=== PATIENT | male | born 1945 | race Caucasian/White ===

== ENCOUNTER 2018-02-15 14:19 | Emergency (ER) | payer MEDICARE ==
[2018-02-15 14:50] LABS: Clarity Cloudy (Clear)
[2018-02-15 15:00] LABS: Bilirubin Negative (Negative); Blood, Urine Large (Negative); Glucose, Urine (Dipstick) Negative (Negative); Leukocyte Negative (Negative); Nitrite Negative (Negative); Protein, Urine (Dipstick) 100 mg/dL (Neg-Trace); Urobilinogen 0.2 mg/dL (0.2-1.0)
[2018-02-15 15:01] LABS: RBC/HPF GREATER THAN 50-TNTC HPF (0-3)
[2018-02-15 15:02] LABS: Bacteria/HPF Rare-Few HPF (None Seen); Crystals/HPF None Seen HPF (Negative); Hyaline Casts/LPF NONE SEEN LPF (0-3 Hyaline); Other Casts/LPF None Seen LPF (0-3 Hyaline); Oval Fat Bodies/HPF None Seen HPF (None Seen); Renal Epithelial None Seen HPF (0-3); Sperm/HPF None Seen HPF (None Seen); Squamous Epithelial 0-3 HPF (0-3); Transitional Epithelial NONE SEEN HPF (0-3); Trichomonas/HPF None Seen HPF (None Seen); WBC/HPF None Seen HPF (0-3); Yeast-All Forms None Seen HPF (None Seen)
[2018-02-15 15:37] LABS: #Basophils 0.1 thou/uL (0.0-0.2); #Eosinphils 0.3 thou/uL (0.0-0.7); #Lymphocytes 1.7 thou/uL (1.20-3.40); #Monocytes 0.7 thou/uL (0.11-0.59); %Basophils 1.3 % (0.0-1.0); %Eosinophils 3.5 % (0.0-10.0); %Lymphocytes 21.6 % (21.0-51.0); %Monocytes 8.5 % (0.0-10.0); %Neutrophils 65.2 % (42.0-75.0); Hemoglobin 15.4 g/dL (14.0-18.0); Mean Corpuscular HGB CONC 34.4 g/dL (32.0-36.0); Mean Corpuscular Hemoglobin 29.3 pg (27.0-31.0); Mean Corpuscular Volume 85.2 fL (78.0-98.0); Mean Platelet Volume 7.5 fL (7.4-10.4); Platelet Count 169 thou/uL (130-400); RBC Distribution Width 11.9 % (11.5-14.5); Red Blood Cell (RBC) Count 5.24 mill/uL (4.70-6.10); White Blood Cell (WBC) Count 7.6 thou/uL (4.8-10.8)
[2018-02-15 15:43] LABS: INR-International Normal Ratio 1.1; PTT 33.1 SEC (22.9-36.1)
[2018-02-15 15:51] LABS: ALT (SGPT) 27 U/L (8-55); AST (SGOT) 22 U/L (5-34); Alkaline Phosphatase 102 U/L (40-150); Anion Gap 14 mmol/L (10-20); BUN (Urea Nitrogen) 20 mg/dL (8.4-25.7); Bilirubin, Total 0.4 mg/dL (0.2-1.2); Calc. Creatinine Clearance 0 mL/min (70-130); Carbon Dioxide 26 mmol/L (23-31); Chloride 107 mmol/L (98-107); Estimated GFR-MDRD 49; Globulin 2.9 g/dL (2.4-3.5); Glucose 103 mg/dL (83-110); Potassium 3.8 mmol/L (3.5-5.1); Protein, Total 6.9 g/dL (5.8-8.1); Sodium 143 mmol/L (136-145)
--- NOTE | 2018-02-15 19:13 | CT ---
CT ABDOMEN AND PELVIS WITH CONTRAST: 02/15/2018 TECHNIQUE: A spiral CT of the abdomen and pelvis was performed for evaluation of hematuria and dysuria. Axial s lices were acquired and then coronal and sagittal reconstructions were done. FINDINGS: ABDOMEN: The lung bases are clear, but there is an 8 mm, noncalcified, smooth-walled nodule in the l eft lower lobe. No effusions are present. The liver, spleen, pancreas, gallbladder, and adrenal gla nds are unremarkable, showing no acute findings or space-occupying disease. The aorta dilates very s lightly, right above the bifurcation, but the maximal diameter at this point is only 2.9 cm. Regarding the kidneys, there is a 1.5 cm hypolucency in the upper to mid portion of the left kidney. It is most likely a small cyst, as there are other tiny cysts throughout each kidney. [id number] s, in the context of hematuria, the patient should have an elective ultrasound done to be sure it is purely cystic. An incidental finding at this level was a retroaortic left renal vein. The bowel shows no distention or wall thickening. There are no inflammatory changes around the bowel . No free air or free fluid is seen. PELVIS: The urinary bladder is thick-walled, concentrically. It is not very distended, which could falsely thicken it somewhat. [id number], it seems thicker than expected, so cystitis or chronic outlet obstruction would be considerations. The prostate is somewhat large, measuring 4.6 cm in diam eter. No free fluid or inflammatory change is seen in the pelvis. Degenerative changes are present in the patient's lumbar spine. There are posterior osteophytes that are very significant at some lev els. At the L3-L4 level, there is a degenerated disk with central canal stenosis, narrowing down to the 7 to 8 mm range. IMPRESSION: 1. Several renal lucencies, the largest being 1.5 cm in the left kidney, most likely cysts, but in t he context of hematuria, an elective ultrasound is required to be sure it is cystic and not solid. 2. Thick-walled urinary bladder, even though collapsed. Cystitis or chronic outlet obstruction are possibilities. I would strongly recommend urological referral in this patient, for followup. 3. An 8 mm, noncalcified, smooth nodule in the left lower lobe. While statistically more likely musa ign than not, one would recommend a follow-up CT in 6 to 12 months, depending on whether or not there is a history of suspicion of neoplasm elsewhere. 4. Minor dilation of the distal abdominal aorta (2.9 cm), to be followed in the future. 5. Significant degenerative changes of the lumbar spine, including severe spinal stenosis at L3-L4. Findings discussed with Dr. Tanner at 1627 hours on 02/15/2018. CODE CR POS: HOME
== END 2018-02-15 17:12 | disposition home or self-care (01) ==
LOC: BURERS 14:19
DX: R31.29 Other microscopic hematuria (principal); R91.1 Solitary pulmonary nodule; N28.1 Cyst of kidney, acquired; K21.9 Gastro-esophageal reflux disease without esophagitis; I10 Essential (primary) hypertension; J44.9 Chronic obstructive pulmonary disease, unspecified; Z79.899 Other long term (current) drug therapy
CPT/HCPCS: 74177; 80053; 81003; 81015; 85025; 85610; 85730; 96360

== ENCOUNTER 2018-03-24 09:50 | Outpatient (CLI) | payer MEDICARE ==
--- NOTE | 2018-03-24 19:39 | ULT ---
BILATERAL RENAL ULTRASOUND: 03/24/18 Ultrasonography of the kidneys was performed for evaluation of a possible left renal cyst seen on a 04/18/17 CT scan. At that time, the patient was presenting with hematuria. The right kidney was unremarkable in appearance and measured 10.8 x 5.5 x 5.8 cm. Cortex was ample an d of normal thickness. No hydronephrosis was seen. The left kidney measured 11.0 x 5.7 x 5.3 cm. Unfortunately, neither a cyst nor an obvious mass was v isible. I reviewed the January CT scan and there is unequivocally a low density area there. I am tonja prised that I cannot see anything to correlate with it on the ultrasound, but if he is continuing to have hematuria, then I would not feel comfortable ignoring the finding. See comments below. The urinary bladder had a rather thick wall concentrically (6 mm) in thickness. it is not well disten ded, however, which could contribute to this. This may or may not be of significance. IMPRESSION: 1. No left renal pathology was confirmed on this study. Given the size of the finding on CT, one would expect to be able to see a cyst if it were present. Thus, I cannot exclude the possibility of an isoechoic mass, though there was no suggestion of such on these images. At the very least, I would monitor his urine and if hematuria is continuing, it would strongly push me towards doing a CT of th e kidneys in arterial, venous and delayed phases to take a better look at this area. One might justif y temporizing if hematuria has resolved and does not return. 2. Apparent thickening of the urinary bladder wall which can be seen in cystitis or chronic outl et obstruction. However, since it has little urine in it, the finding could also be normal. Code T POS: HOME
== END 2018-03-24 09:51 | disposition home or self-care (01) ==
LOC: BURULT 09:50
PROVIDERS: ATTEND Family Medicine
DX: N28.1 Cyst of kidney, acquired (principal); N32.89 Other specified disorders of bladder
CPT/HCPCS: 76770

== ENCOUNTER 2018-06-26 16:56 | Inpatient (IN) | payer MEDICARE ==
[2018-06-26] MEDS: Apixaban 5 MG TAB PO SCH (22:07)
[2018-06-26] MEDS: guaiFENesin ER 600 MG TAB PO SCH (22:08)
[2018-06-26] MEDS: Atorvastatin Calcium 40 MG TAB PO SCH (22:08)
[2018-06-26] MEDS: SACUBITRIL PO SCH (22:08)
[2018-06-26] MEDS: VALSARTAN PO SCH (22:08)
[2018-06-26] MEDS: SAW PALMETTO FRUIT PO SCH (22:09)
[2018-06-26] MEDS: SYMBICORT 160/4.5 MCG INH SCH (22:10)
[2018-06-27] MEDS: Ipratropium Bromide 2.5 ml Neb NEB SCH ×5 (00:30→23:45)
[2018-06-27 05:56] LABS: #Basophils 0.1 thou/uL (0.0-0.2); #Eosinphils 0.2 thou/uL (0.0-0.7); #Lymphocytes 1.1 thou/uL (1.20-3.40); #Monocytes 0.8 thou/uL (0.11-0.59); #Neutrophils 4.3 thou/uL (1.40-6.50); %Basophils 0.9 % (0.0-1.0); %Eosinophils 3.7 % (0.0-10.0); %Lymphocytes 17.1 % (21.0-51.0); %Monocytes 11.5 % (0.0-10.0); %Neutrophils 66.7 % (42.0-75.0); Hemoglobin 10.4 g/dL (14.0-18.0); Mean Corpuscular HGB CONC 31.6 g/dL (32.0-36.0); Mean Corpuscular Hemoglobin 27.4 pg (27.0-31.0); Mean Corpuscular Volume 86.6 fL (78.0-98.0); Mean Platelet Volume 6.6 fL (7.4-10.4); Platelet Count 186 thou/uL (130-400); RBC Distribution Width 14.7 % (11.5-14.5); White Blood Cell (WBC) Count 6.5 thou/uL (4.8-10.8)
[2018-06-27 06:08] LABS: ALT (SGPT) 13 U/L (8-55); AST (SGOT) 11 U/L (5-34); Albumin 3.4 g/dL (3.4-4.8); Alkaline Phosphatase 120 U/L (40-150); Anion Gap 13 mmol/L (10-20); BUN (Urea Nitrogen) 20 mg/dL (8.4-25.7); Bilirubin, Total 0.5 mg/dL (0.2-1.2); Calc. Creatinine Clearance 77 mL/min (70-130); Calcium 9.1 mg/dL (7.8-10.44); Carbon Dioxide 23 mmol/L (23-31); Chloride 106 mmol/L (98-107); Estimated GFR-MDRD 58; Globulin 3.5 g/dL (2.4-3.5); Glucose 112 mg/dL (83-110); Protein, Total 6.9 g/dL (5.8-8.1); Sodium 138 mmol/L (136-145)
[2018-06-27] MEDS ORDERED: SAW PALMETTO FRUIT PO SCH (09:00)
[2018-06-27] MEDS: Carvedilol 3.125 MG TAB PO SCH ×2 (09:33→17:15)
[2018-06-27] MEDS: guaiFENesin ER 600 MG TAB PO SCH ×2 (09:33→20:28)
[2018-06-27] MEDS: Stress 600 With Zinc 1 TAB PO SCH (09:33)
[2018-06-27] MEDS: Multivit, Therapeutic 1 TAB PO SCH (09:34)
[2018-06-27] MEDS: Potassium Chloride 10 MEQ TAB PO SCH ×2 (09:34→17:16)
[2018-06-27] MEDS: Ferrous Sulfate 325 MG TAB PO SCH (09:34)
[2018-06-27] MEDS: Aspirin Chewable 81 MG TAB PO SCH (09:34)
[2018-06-27] MEDS: Tamsulosin HCl 0.4 MG CAP PO SCH (09:35)
[2018-06-27] MEDS: Apixaban 5 MG TAB PO SCH ×2 (09:35→20:28)
[2018-06-27] MEDS: Furosemide 40 MG TAB PO SCH (09:36)
[2018-06-27] MEDS: Finasteride 5 MG TAB PO SCH (09:36)
[2018-06-27] MEDS: Calcium Carbonate + Vit D 500 MG TAB PO SCH (09:37)
[2018-06-27] MEDS: SAW PALMETTO FRUIT PO SCH ×2 (09:58→20:29)
[2018-06-27] MEDS: SYMBICORT 160/4.5 MCG INH SCH ×2 (09:59→20:30)
[2018-06-27] MEDS: SACUBITRIL PO SCH ×2 (10:01→20:31)
[2018-06-27] MEDS: VALSARTAN PO SCH ×2 (10:01→20:31)
[2018-06-27] MEDS: METHYLCELLULOSE PO SCH (10:02)
[2018-06-27 11:13] LABS: Bilirubin Negative (Negative); Clarity Cloudy (Clear); Glucose, Urine (Dipstick) Negative (Negative); Leukocyte Large (Negative); Nitrite Negative (Negative); Protein, Urine (Dipstick) 100 mg/dL (Neg-Trace); Specific Gravity, Urine 1.009 (1.005-1.030); Urobilinogen 0.2 mg/dL (0.2-1.0)
[2018-06-27 11:14] LABS: Blood, Urine Large (Negative); Squamous Epithelial 0-3 HPF (0-3); WBC/HPF 21-50 HPF (0-3)
[2018-06-27 11:15] LABS: Bacteria/HPF 4+ HPF (None Seen)
[2018-06-27 11:16] LABS: Urine Culture Reflex Yes Yes
[2018-06-27] MEDS ORDERED: Ciprofloxacin 500 MG TAB PO SCH (12:30)
[2018-06-27] MEDS: Acetaminophen 500 MG TAB PO PRN ×2 (15:27→20:43)
[2018-06-27] MEDS: Ciprofloxacin 500 MG TAB PO SCH (20:28)
[2018-06-27] MEDS: Atorvastatin Calcium 40 MG TAB PO SCH (20:28)
[2018-06-28] MEDS: Ipratropium Bromide 2.5 ml Neb NEB SCH ×4 (05:28→23:54)
[2018-06-28] MEDS: Ciprofloxacin 500 MG TAB PO SCH ×2 (05:28→21:05)
--- NOTE | 2018-06-28 07:12 | HP ---
CHIEF COMPLAINT: Generalized weakness. HISTORY OF PRESENT ILLNESS: A 72-year-old male with complicated medical history with recent extended admission at [facility] in [place] , where he was admitted on 05/24/2018, for elective coronary artery bypass grafting. His stay was complicated by a number of issues including a postoperative ileus. After this, he developed dyspnea, to which, venous ultrasound demonstrated bilateral DVTs and a V/Q scan suspicious for pulmonary emboli. He was started on Lovenox, however, after this, complained of severe right lower extremity pain, which ended up being as a result of heparin-induced thrombocytopenia; he subsequently was taken emergently to the operating room, where he underwent embolectomy from his right superficial femoral artery. He was transitioned to [facility] for anticoagulation thereafter. The patient has been placed in a LifeVest. There was plan for him to come to [facility] for rehab; however, insurance denied this stating he did not qualify. He ultimately was discharged home and was able to follow up in my clinic last week. He has complained of physical deconditioning since that time , and he appealed for swing bed status to participate with physical therapy and occupational therapy; this was successful, and he has been granted 5 days as of this time. He thus presented to our facility yesterday afternoon to pursue physical therapy and occupational therapy as allowed. The patient does report to get winded easily with activities. He has been wearing his LifeVest with plans to follow up both with Dr. Barrios and Dr. Chapman in the coming weeks. He has no complaints of chest pain at this time. He has been elevating his lower extremities to help prevent build-up of excessive edema. The patient does have a malignant neoplasm of the urinary bladder, for which he is followed by Dr. Horton. He voids frequently in small amounts and previously required Dugan catheter placement. At this time, he does complain of mild dysuria and requests evaluation for urinary tract infection. Of note, he is afebrile with no leukocytosis. He has no other new concerns at this time. He has good insight into his reason for admission here, with current restricted duration approved. [facility] has been [facility] with [facility] for further transition of care upon discharge. PAST MEDICAL HISTORY: Includes ischemic cardiomyopathy; COPD; hypertension; benign prostatic hyperplasia; chronic low back pain; mixed hyperlipidemia; chronic kidney disease, stage 3; malignant neoplasm of the urinary bladder; urinary retention; gastroesophageal reflux disease; DVT of bilateral lower extremities; and heparin-induced thrombocytopenia. PAST SURGICAL HISTORY: Includes right femoral embolectomy on 06/05/2018, via Dr. Barrios; bladder cauterization in 01/2018; upper endoscopy and colonoscopy in March of 2018; and coronary artery bypass graft x4 in April 2018. SOCIAL HISTORY: Denies EtOH or illicit drug use. Denies tobacco use. Denies being a former smoker. ALLERGIES: HEPARIN. FAMILY HISTORY: Noncontributory. CURRENT MEDICATIONS: 1. Eliquis 5 mg b.i.d. 2. Aspirin 81 mg daily. 3. Atorvastatin 40 mg daily. 4. Carvedilol 3.125 mg b.i.d. 5. Ferrous sulfate 325 mg daily. 6. Finasteride 5 mg daily. 7. Lasix 40 mg daily. 8. Mucinex 600 mg b.i.d. p.r.n. 9. Ipratropium bromide nebs 2.5 mL q.6 hours. 10. Daily multivitamin. 11. Protonix 40 mg b.i.d. 12. Potassium chloride 10 mEq b.i.d. 13. Zinc tablet 600 one tab daily. 14. Flomax 0.8 mg daily. 15. Entresto 24-26 mg b.i.d. REVIEW OF SYSTEMS: GENERAL: Complains of fatigue. Denies fever. EARS, NOSE, AND THROAT: Denies sore throat, nasal drainage, or congestion. CARDIOVASCULAR: Denies chest pain. RESPIRATORY: Complains of shortness of breath with activity. Denies cough. GASTROINTESTINAL: Denies abdominal pain, nausea, vomiting, diarrhea, or constipation. GENITOURINARY: Complains of dysuria. MUSCULOSKELETAL: Complains of chronic back pain. DERM: Denies rash. Does have healing skin lesions from his CABG. NEUROLOGIC: Denies headache. LABORATORY DATA: White blood cell count 6.5, hemoglobin 10.4, hematocrit 33, platelets 186. Sodium 138, potassium 4.0, BUN is 20, creatinine 1.23, GFR is 58 , glucose 112, AST 11, ALT 13, alkaline phosphatase is 120. PHYSICAL EXAMINATION: VITAL SIGNS: Temperature 98.0, pulse is 108, respiratory rate is 18, oxygen is 96% on room air, blood pressure is 137/71. GENERAL: The patient is alert and oriented, in no acute distress, and he is tired-appearing. HEAD, EYES, EARS, NOSE, AND THROAT: Normocephalic and atraumatic. Extraocular muscles are intact. Moist mucous membranes. NECK: Supple without lymphadenopathy. No meningeal signs. CARDIOVASCULAR: Borderline tachycardia. Irregular rate and rhythm. Normal S1 and S2. The patient is wearing a LifeVest. RESPIRATORY: Clear to auscultation bilaterally without wheezes, rales, or rhonchi. GASTROINTESTINAL: Protuberant abdomen, nontender to palpation. Normal bowel sounds. EXTREMITIES: The patient exhibits clubbing to fingers. No cyanosis. He has 1+ pitting lower extremity edema to the left lower extremity and trace edema to the right lower extremity. MUSCULOSKELETAL: Generalized weakness. SKIN: Healing surgical incision site to the central chest over the sternum. NEUROLOGIC: Nonfocal exam. Cranial nerves 2 through 12 are grossly intact. ASSESSMENT AND PLAN: 1. Physical deconditioning. The patient is to participate with physical therapy and occupational therapy. He has been set up with [facility] for transition of care when he is able to return home. 2. Ischemic cardiomyopathy, status post coronary artery bypass grafting x4. The patient is on Entresto and Eliquis with plans to follow up with both Dr. Barrios and Dr. Chapman. He is wearing his LifeVest. 3. Bilateral deep venous thrombosis status post heparin-induced thrombocytopenia. We will resume the patient on Eliquis. 4. Malignant neoplasm of urinary bladder. The patient is to follow up with Dr. Horton regarding this. 5. Chronic obstructive pulmonary disease. The patient is currently stable on room air at this time. We will resume his home COPD medications. 6. Hypertension. The patient's blood pressure is well controlled. We will resume his usual blood pressure medications. 7. Dyslipidemia. We will resume statin. 8. Benign prostatic hyperplasia. The patient is on Flomax and finasteride. 9. Dysuria. We will obtain urinalysis with culture to assess need for antibiotic treatment. 10. Prophylaxis. The patient is on Eliquis for DVT prophylaxis and pantoprazole for GI prophylaxis. CODE STATUS: Full. DISPOSITION: The patient will discharge to his home setting when cleared by Physical Therapy and Occupational Therapy or if insurance dictates sooner. We will have [facility] for continuity of care. Job ID: [id number] REEMA
[2018-06-28] MEDS: Stress 600 With Zinc 1 TAB PO SCH (09:33)
[2018-06-28] MEDS: Carvedilol 3.125 MG TAB PO SCH ×2 (09:33→17:55)
[2018-06-28] MEDS: Aspirin Chewable 81 MG TAB PO SCH (09:33)
[2018-06-28] MEDS: Ferrous Sulfate 325 MG TAB PO SCH (09:33)
[2018-06-28] MEDS: Finasteride 5 MG TAB PO SCH (09:33)
[2018-06-28] MEDS: Potassium Chloride 10 MEQ TAB PO SCH ×2 (09:33→17:55)
[2018-06-28] MEDS: Apixaban 5 MG TAB PO SCH ×2 (09:34→21:05)
[2018-06-28] MEDS: Tamsulosin HCl 0.4 MG CAP PO SCH (09:34)
[2018-06-28] MEDS: Multivit, Therapeutic 1 TAB PO SCH (09:34)
[2018-06-28] MEDS: guaiFENesin ER 600 MG TAB PO SCH ×2 (09:34→21:05)
[2018-06-28] MEDS: Furosemide 40 MG TAB PO SCH (09:34)
[2018-06-28] MEDS: Calcium Carbonate + Vit D 500 MG TAB PO SCH (09:37)
[2018-06-28] MEDS: METHYLCELLULOSE PO SCH (09:42)
[2018-06-28] MEDS: VALSARTAN PO SCH ×2 (09:42→21:05)
[2018-06-28] MEDS: SACUBITRIL PO SCH ×2 (09:42→21:05)
[2018-06-28] MEDS: SAW PALMETTO FRUIT PO SCH ×2 (09:43→21:06)
[2018-06-28] MEDS: SYMBICORT 160/4.5 MCG INH SCH ×2 (09:45→21:06)
[2018-06-28] MEDS: Acetaminophen 500 MG TAB PO PRN ×2 (15:37→22:59)
[2018-06-28] MEDS: Polyethylene Glycol 3350 17 GM Packet PO PRN (15:42)
[2018-06-28] MEDS: Nystatin Cream 15 GM TUBE TOP PRN (16:00)
[2018-06-28] MEDS: Atorvastatin Calcium 40 MG TAB PO SCH (21:04)
[2018-06-29] MEDS: Ciprofloxacin 500 MG TAB PO SCH ×2 (05:37→20:07)
[2018-06-29] MEDS: Ipratropium Bromide 2.5 ml Neb NEB SCH ×3 (05:37→18:43)
[2018-06-29] MEDS: Ferrous Sulfate 325 MG TAB PO SCH (08:19)
[2018-06-29] MEDS: Potassium Chloride 10 MEQ TAB PO SCH ×2 (08:20→16:40)
[2018-06-29] MEDS: Carvedilol 3.125 MG TAB PO SCH ×2 (08:20→16:40)
[2018-06-29] MEDS: Aspirin Chewable 81 MG TAB PO SCH (09:24)
[2018-06-29] MEDS: Tamsulosin HCl 0.4 MG CAP PO SCH (09:25)
[2018-06-29] MEDS: Furosemide 40 MG TAB PO SCH (09:25)
[2018-06-29] MEDS: Stress 600 With Zinc 1 TAB PO SCH (09:25)
[2018-06-29] MEDS: guaiFENesin ER 600 MG TAB PO SCH ×2 (09:25→20:07)
[2018-06-29] MEDS: Apixaban 5 MG TAB PO SCH ×2 (09:25→20:06)
[2018-06-29] MEDS: Finasteride 5 MG TAB PO SCH (09:26)
[2018-06-29] MEDS: Multivit, Therapeutic 1 TAB PO SCH (09:27)
[2018-06-29] MEDS: Calcium Carbonate + Vit D 500 MG TAB PO SCH (09:27)
[2018-06-29] MEDS: VALSARTAN PO SCH ×2 (09:32→20:16)
[2018-06-29] MEDS: SACUBITRIL PO SCH ×2 (09:32→20:16)
[2018-06-29] MEDS: SAW PALMETTO FRUIT PO SCH ×2 (10:10→20:18)
[2018-06-29] MEDS: METHYLCELLULOSE PO SCH (10:11)
[2018-06-29] MEDS: SYMBICORT 160/4.5 MCG INH SCH ×2 (10:12→20:17)
[2018-06-29] MEDS: Acetaminophen 500 MG TAB PO PRN ×2 (15:27→20:05)
[2018-06-29] MEDS: Atorvastatin Calcium 40 MG TAB PO SCH (20:06)
[2018-06-30] MEDS: Ipratropium Bromide 2.5 ml Neb NEB SCH ×4 (00:14→17:16)
[2018-06-30] MEDS: Polyethylene Glycol 3350 17 GM Packet PO PRN (02:04)
[2018-06-30] MEDS: Ciprofloxacin 500 MG TAB PO SCH ×2 (06:02→20:16)
[2018-06-30] MEDS: Finasteride 5 MG TAB PO SCH (08:57)
[2018-06-30] MEDS: Carvedilol 3.125 MG TAB PO SCH ×2 (08:58→17:14)
[2018-06-30] MEDS: Furosemide 40 MG TAB PO SCH (08:59)
[2018-06-30] MEDS: Tamsulosin HCl 0.4 MG CAP PO SCH (09:00)
[2018-06-30] MEDS: Apixaban 5 MG TAB PO SCH ×2 (09:01→20:16)
[2018-06-30] MEDS: Ferrous Sulfate 325 MG TAB PO SCH (09:01)
[2018-06-30] MEDS: Aspirin Chewable 81 MG TAB PO SCH (09:01)
[2018-06-30] MEDS: Stress 600 With Zinc 1 TAB PO SCH (09:02)
[2018-06-30] MEDS: SYMBICORT 160/4.5 MCG INH SCH ×2 (09:02→20:18)
[2018-06-30] MEDS: guaiFENesin ER 600 MG TAB PO SCH ×2 (09:02→20:16)
[2018-06-30] MEDS: Multivit, Therapeutic 1 TAB PO SCH (09:02)
[2018-06-30] MEDS: METHYLCELLULOSE PO SCH (09:03)
[2018-06-30] MEDS: SACUBITRIL PO SCH ×2 (09:04→20:17)
[2018-06-30] MEDS: VALSARTAN PO SCH ×2 (09:04→20:17)
[2018-06-30] MEDS: Potassium Chloride 10 MEQ TAB PO SCH ×2 (09:05→17:16)
[2018-06-30] MEDS: Calcium Carbonate + Vit D 500 MG TAB PO SCH (09:06)
[2018-06-30] MEDS: SAW PALMETTO FRUIT PO SCH ×2 (09:11→20:17)
[2018-06-30] MEDS: Atorvastatin Calcium 40 MG TAB PO SCH (20:16)
[2018-07-01] MEDS: Acetaminophen 500 MG TAB PO PRN ×2 (00:48→14:54)
[2018-07-01] MEDS: Ipratropium Bromide 2.5 ml Neb NEB SCH ×4 (00:48→17:29)
[2018-07-01] MEDS: Ciprofloxacin 500 MG TAB PO SCH ×2 (05:27→20:46)
[2018-07-01] MEDS: Multivit, Therapeutic 1 TAB PO SCH (08:39)
[2018-07-01] MEDS: Finasteride 5 MG TAB PO SCH (08:40)
[2018-07-01] MEDS: Ferrous Sulfate 325 MG TAB PO SCH (08:40)
[2018-07-01] MEDS: Stress 600 With Zinc 1 TAB PO SCH (08:40)
[2018-07-01] MEDS: Carvedilol 3.125 MG TAB PO SCH ×2 (08:40→17:29)
[2018-07-01] MEDS: Furosemide 40 MG TAB PO SCH (08:40)
[2018-07-01] MEDS: Apixaban 5 MG TAB PO SCH ×2 (08:41→20:46)
[2018-07-01] MEDS: Potassium Chloride 10 MEQ TAB PO SCH ×2 (08:41→17:29)
[2018-07-01] MEDS: Aspirin Chewable 81 MG TAB PO SCH (08:42)
[2018-07-01] MEDS: Calcium Carbonate + Vit D 500 MG TAB PO SCH (08:42)
[2018-07-01] MEDS: Tamsulosin HCl 0.4 MG CAP PO SCH (08:42)
[2018-07-01] MEDS: METHYLCELLULOSE PO SCH (08:43)
[2018-07-01] MEDS: SACUBITRIL PO SCH ×2 (08:44→22:03)
[2018-07-01] MEDS: VALSARTAN PO SCH ×2 (08:44→22:03)
[2018-07-01] MEDS: guaiFENesin ER 600 MG TAB PO SCH ×2 (08:45→20:46)
[2018-07-01] MEDS: SAW PALMETTO FRUIT PO SCH ×2 (08:48→22:03)
[2018-07-01] MEDS: Senokot 8.6 MG TAB PO PRN (09:32)
[2018-07-01] MEDS: SYMBICORT 160/4.5 MCG INH SCH ×2 (09:32→22:04)
[2018-07-01] MEDS ORDERED: Ipratropium Bromide 2.5 ml Neb ONE (15:12)
[2018-07-01] MEDS: Atorvastatin Calcium 40 MG TAB PO SCH (20:46)
[2018-07-02] MEDS: Ipratropium Bromide 2.5 ml Neb NEB SCH ×4 (00:20→17:12)
[2018-07-02] MEDS: Senokot 8.6 MG TAB PO PRN ×2 (00:27→20:37)
[2018-07-02] MEDS: Acetaminophen 500 MG TAB PO PRN ×2 (03:16→17:11)
[2018-07-02 05:53] LABS: Hemoglobin 10.4 g/dL (14.0-18.0); Platelet Count 247 thou/uL (130-400)
[2018-07-02] MEDS: Ciprofloxacin 500 MG TAB PO SCH ×2 (06:12→20:31)
[2018-07-02] MEDS: Multivit, Therapeutic 1 TAB PO SCH (08:42)
[2018-07-02] MEDS: Stress 600 With Zinc 1 TAB PO SCH (08:42)
[2018-07-02] MEDS: VALSARTAN PO SCH ×2 (08:43→20:30)
[2018-07-02] MEDS: Finasteride 5 MG TAB PO SCH (08:43)
[2018-07-02] MEDS: guaiFENesin ER 600 MG TAB PO SCH ×2 (08:43→20:31)
[2018-07-02] MEDS: Carvedilol 3.125 MG TAB PO SCH ×2 (08:43→17:11)
[2018-07-02] MEDS: SACUBITRIL PO SCH ×2 (08:43→20:30)
[2018-07-02] MEDS: Furosemide 40 MG TAB PO SCH (08:43)
[2018-07-02] MEDS: Potassium Chloride 10 MEQ TAB PO SCH ×2 (08:44→17:11)
[2018-07-02] MEDS: Tamsulosin HCl 0.4 MG CAP PO SCH (08:44)
[2018-07-02] MEDS: Ferrous Sulfate 325 MG TAB PO SCH (08:44)
[2018-07-02] MEDS: Aspirin Chewable 81 MG TAB PO SCH (08:45)
[2018-07-02] MEDS: Calcium Carbonate + Vit D 500 MG TAB PO SCH (08:45)
[2018-07-02] MEDS: Apixaban 5 MG TAB PO SCH ×2 (08:45→20:31)
[2018-07-02] MEDS: METHYLCELLULOSE PO SCH (08:46)
[2018-07-02] MEDS: SAW PALMETTO FRUIT PO SCH ×2 (08:47→20:30)
[2018-07-02] MEDS: SYMBICORT 160/4.5 MCG INH SCH ×2 (08:47→20:31)
[2018-07-02] MEDS: Nystatin Cream 15 GM TUBE TOP PRN (20:30)
[2018-07-02] MEDS: Atorvastatin Calcium 40 MG TAB PO SCH (20:31)
[2018-07-03] MEDS: Ipratropium Bromide 2.5 ml Neb NEB SCH ×5 (00:08→23:54)
[2018-07-03] MEDS: Ciprofloxacin 500 MG TAB PO SCH ×2 (05:48→20:45)
[2018-07-03] MEDS: Aspirin Chewable 81 MG TAB PO SCH (08:22)
[2018-07-03] MEDS: Potassium Chloride 10 MEQ TAB PO SCH ×2 (08:22→17:18)
[2018-07-03] MEDS: Apixaban 5 MG TAB PO SCH ×2 (08:22→20:45)
[2018-07-03] MEDS: Tamsulosin HCl 0.4 MG CAP PO SCH (08:22)
[2018-07-03] MEDS: guaiFENesin ER 600 MG TAB PO SCH ×2 (08:23→20:45)
[2018-07-03] MEDS: Stress 600 With Zinc 1 TAB PO SCH (08:23)
[2018-07-03] MEDS: Ferrous Sulfate 325 MG TAB PO SCH (08:23)
[2018-07-03] MEDS: Finasteride 5 MG TAB PO SCH (08:23)
[2018-07-03] MEDS: Multivit, Therapeutic 1 TAB PO SCH (08:23)
[2018-07-03] MEDS: Carvedilol 3.125 MG TAB PO SCH ×2 (08:23→17:18)
[2018-07-03] MEDS: Furosemide 40 MG TAB PO SCH (08:24)
[2018-07-03] MEDS: VALSARTAN PO SCH ×2 (08:24→20:43)
[2018-07-03] MEDS: SACUBITRIL PO SCH ×2 (08:24→20:43)
[2018-07-03] MEDS: SAW PALMETTO FRUIT PO SCH ×2 (08:26→20:43)
[2018-07-03] MEDS: SYMBICORT 160/4.5 MCG INH SCH ×2 (08:26→20:44)
[2018-07-03] MEDS: METHYLCELLULOSE PO SCH (08:26)
[2018-07-03] MEDS: Calcium Carbonate + Vit D 500 MG TAB PO SCH (08:26)
[2018-07-03] MEDS: Nystatin Cream 15 GM TUBE TOP PRN ×2 (12:04→20:48)
[2018-07-03] MEDS: Acetaminophen 500 MG TAB PO PRN ×2 (12:12→17:22)
[2018-07-03] MEDS: Atorvastatin Calcium 40 MG TAB PO SCH (20:45)
[2018-07-04] MEDS: Acetaminophen 500 MG TAB PO PRN ×4 (00:07→20:54)
[2018-07-04 05:22] LABS: Hemoglobin 10.5 g/dL (14.0-18.0); Platelet Count 234 thou/uL (130-400)
[2018-07-04] MEDS: Ipratropium Bromide 2.5 ml Neb NEB SCH ×4 (05:50→23:41)
[2018-07-04] MEDS: Aspirin Chewable 81 MG TAB PO SCH (09:06)
[2018-07-04] MEDS: Carvedilol 3.125 MG TAB PO SCH ×2 (09:06→17:04)
[2018-07-04] MEDS: Finasteride 5 MG TAB PO SCH (09:06)
[2018-07-04] MEDS: Stress 600 With Zinc 1 TAB PO SCH (09:07)
[2018-07-04] MEDS: Multivit, Therapeutic 1 TAB PO SCH (09:07)
[2018-07-04] MEDS: Tamsulosin HCl 0.4 MG CAP PO SCH (09:07)
[2018-07-04] MEDS: Ferrous Sulfate 325 MG TAB PO SCH (09:08)
[2018-07-04] MEDS: guaiFENesin ER 600 MG TAB PO SCH ×2 (09:08→20:55)
[2018-07-04] MEDS: Furosemide 40 MG TAB PO SCH (09:08)
[2018-07-04] MEDS: Potassium Chloride 10 MEQ TAB PO SCH ×2 (09:09→17:05)
[2018-07-04] MEDS: Apixaban 5 MG TAB PO SCH ×2 (09:09→20:54)
[2018-07-04] MEDS: METHYLCELLULOSE PO SCH (09:10)
[2018-07-04] MEDS: VALSARTAN PO SCH ×2 (09:10→20:54)
[2018-07-04] MEDS: SACUBITRIL PO SCH ×2 (09:10→20:54)
[2018-07-04] MEDS: SYMBICORT 160/4.5 MCG INH SCH ×2 (09:11→20:54)
[2018-07-04] MEDS: SAW PALMETTO FRUIT PO SCH ×2 (09:11→20:53)
[2018-07-04] MEDS: Calcium Carbonate + Vit D 500 MG TAB PO SCH (09:12)
[2018-07-04] MEDS: Nystatin Cream 15 GM TUBE TOP PRN (20:53)
[2018-07-04] MEDS: Atorvastatin Calcium 40 MG TAB PO SCH (20:54)
[2018-07-04] MEDS: Senokot 8.6 MG TAB PO PRN (20:54)
[2018-07-05] MEDS: Ipratropium Bromide 2.5 ml Neb NEB SCH ×4 (05:59→23:38)
[2018-07-05] MEDS: Senokot 8.6 MG TAB PO PRN ×2 (06:06→23:38)
[2018-07-05] MEDS: Acetaminophen 500 MG TAB PO PRN (06:07)
[2018-07-05] MEDS: Ferrous Sulfate 325 MG TAB PO SCH (08:50)
[2018-07-05] MEDS: Carvedilol 3.125 MG TAB PO SCH ×2 (08:50→17:55)
[2018-07-05] MEDS: Potassium Chloride 10 MEQ TAB PO SCH ×2 (08:50→17:55)
[2018-07-05] MEDS: Multivit, Therapeutic 1 TAB PO SCH (09:12)
[2018-07-05] MEDS: Stress 600 With Zinc 1 TAB PO SCH (09:13)
[2018-07-05] MEDS: Finasteride 5 MG TAB PO SCH (09:13)
[2018-07-05] MEDS: Gabapentin 300 MG CAP PO SCH ×2 (09:13→21:11)
[2018-07-05] MEDS: Furosemide 40 MG TAB PO SCH (09:14)
[2018-07-05] MEDS: Calcium Carbonate + Vit D 500 MG TAB PO SCH (09:15)
[2018-07-05] MEDS: Tamsulosin HCl 0.4 MG CAP PO SCH (09:17)
[2018-07-05] MEDS: Apixaban 5 MG TAB PO SCH ×2 (09:17→21:11)
[2018-07-05] MEDS: Aspirin Chewable 81 MG TAB PO SCH (09:18)
[2018-07-05] MEDS: SAW PALMETTO FRUIT PO SCH ×2 (09:18→21:10)
[2018-07-05] MEDS: guaiFENesin ER 600 MG TAB PO SCH ×2 (09:18→21:11)
[2018-07-05] MEDS: VALSARTAN PO SCH ×2 (09:19→21:11)
[2018-07-05] MEDS: SACUBITRIL PO SCH ×2 (09:19→21:11)
[2018-07-05] MEDS: SYMBICORT 160/4.5 MCG INH SCH ×2 (09:19→21:11)
[2018-07-05] MEDS: METHYLCELLULOSE PO SCH (09:25)
[2018-07-05] MEDS: Atorvastatin Calcium 40 MG TAB PO SCH (21:11)
[2018-07-05] MEDS: Nystatin Cream 15 GM TUBE TOP PRN (21:15)
[2018-07-05] MEDS ORDERED: ALPRAZolam 0.5 MG TAB ONE (23:34)
[2018-07-05] MEDS: ALPRAZolam 0.5 MG TAB PO PRN (23:38)
[2018-07-06 04:05] LABS: Hemoglobin 10.9 g/dL (14.0-18.0); Platelet Count 218 thou/uL (130-400)
[2018-07-06] MEDS: Ipratropium Bromide 2.5 ml Neb NEB SCH ×3 (05:42→17:19)
[2018-07-06] MEDS: SYMBICORT 160/4.5 MCG INH SCH ×2 (08:22→21:41)
[2018-07-06] MEDS: METHYLCELLULOSE PO SCH (08:23)
[2018-07-06] MEDS: SAW PALMETTO FRUIT PO SCH ×2 (08:24→21:41)
[2018-07-06] MEDS: VALSARTAN PO SCH ×2 (08:24→21:41)
[2018-07-06] MEDS: SACUBITRIL PO SCH ×2 (08:24→21:41)
[2018-07-06] MEDS: Multivit, Therapeutic 1 TAB PO SCH (08:25)
[2018-07-06] MEDS: Tamsulosin HCl 0.4 MG CAP PO SCH (08:25)
[2018-07-06] MEDS: Carvedilol 3.125 MG TAB PO SCH ×2 (08:25→16:38)
[2018-07-06] MEDS: Stress 600 With Zinc 1 TAB PO SCH (08:25)
[2018-07-06] MEDS: Ferrous Sulfate 325 MG TAB PO SCH (08:26)
[2018-07-06] MEDS: Gabapentin 300 MG CAP PO SCH ×2 (08:26→21:40)
[2018-07-06] MEDS: Finasteride 5 MG TAB PO SCH (08:27)
[2018-07-06] MEDS: Apixaban 5 MG TAB PO SCH ×2 (08:27→21:41)
[2018-07-06] MEDS: Furosemide 40 MG TAB PO SCH (08:27)
[2018-07-06] MEDS: Aspirin Chewable 81 MG TAB PO SCH (08:27)
[2018-07-06] MEDS: guaiFENesin ER 600 MG TAB PO SCH ×2 (08:27→21:41)
[2018-07-06] MEDS: Calcium Carbonate + Vit D 500 MG TAB PO SCH (08:28)
[2018-07-06] MEDS: Potassium Chloride 10 MEQ TAB PO SCH ×2 (08:28→16:38)
[2018-07-06] MEDS: Atorvastatin Calcium 40 MG TAB PO SCH (21:40)
[2018-07-06] MEDS: Senokot 8.6 MG TAB PO PRN (21:40)
[2018-07-06] MEDS: Nystatin Cream 15 GM TUBE TOP PRN (21:47)
[2018-07-07] MEDS: Ipratropium Bromide 2.5 ml Neb NEB SCH ×5 (00:09→23:33)
[2018-07-07] MEDS: ALPRAZolam 0.5 MG TAB PO PRN ×2 (00:09→23:43)
[2018-07-07] MEDS: Calcium Carbonate + Vit D 500 MG TAB PO SCH (07:47)
[2018-07-07] MEDS: Carvedilol 3.125 MG TAB PO SCH ×2 (07:48→18:00)
[2018-07-07] MEDS: Finasteride 5 MG TAB PO SCH (07:48)
[2018-07-07] MEDS: Stress 600 With Zinc 1 TAB PO SCH (07:48)
[2018-07-07] MEDS: Potassium Chloride 10 MEQ TAB PO SCH ×2 (07:49→18:00)
[2018-07-07] MEDS: Tamsulosin HCl 0.4 MG CAP PO SCH (07:49)
[2018-07-07] MEDS: Aspirin Chewable 81 MG TAB PO SCH (07:49)
[2018-07-07] MEDS: Multivit, Therapeutic 1 TAB PO SCH (07:50)
[2018-07-07] MEDS: Senokot 8.6 MG TAB PO PRN (07:50)
[2018-07-07] MEDS: guaiFENesin ER 600 MG TAB PO SCH ×2 (07:50→20:45)
[2018-07-07] MEDS: Gabapentin 300 MG CAP PO SCH ×2 (07:50→20:45)
[2018-07-07] MEDS: Ferrous Sulfate 325 MG TAB PO SCH (07:51)
[2018-07-07] MEDS: Furosemide 40 MG TAB PO SCH (07:51)
[2018-07-07] MEDS: Apixaban 5 MG TAB PO SCH ×2 (07:51→20:45)
[2018-07-07] MEDS: SAW PALMETTO FRUIT PO SCH ×2 (08:56→20:45)
[2018-07-07] MEDS: SACUBITRIL PO SCH ×2 (09:05→20:45)
[2018-07-07] MEDS: VALSARTAN PO SCH ×2 (09:05→20:45)
[2018-07-07] MEDS: METHYLCELLULOSE PO SCH (16:17)
[2018-07-07] MEDS: SYMBICORT 160/4.5 MCG INH SCH ×2 (16:18→20:46)
[2018-07-07] MEDS: Atorvastatin Calcium 40 MG TAB PO SCH (20:45)
[2018-07-08] MEDS: traMADol HCl 50 MG TAB PO PRN (00:02)
[2018-07-08] MEDS: ALPRAZolam 0.5 MG TAB PO PRN (00:03)
[2018-07-08 05:38] LABS: Hemoglobin 10.7 g/dL (14.0-18.0); Platelet Count 213 thou/uL (130-400)
[2018-07-08] MEDS: Ipratropium Bromide 2.5 ml Neb NEB SCH ×4 (05:46→23:56)
[2018-07-08] MEDS: Calcium Carbonate + Vit D 500 MG TAB PO SCH (09:00)
[2018-07-08] MEDS: Apixaban 5 MG TAB PO SCH ×2 (09:01→20:11)
[2018-07-08] MEDS: Tamsulosin HCl 0.4 MG CAP PO SCH (09:01)
[2018-07-08] MEDS: guaiFENesin ER 600 MG TAB PO SCH ×2 (09:01→20:10)
[2018-07-08] MEDS: Furosemide 40 MG TAB PO SCH (09:02)
[2018-07-08] MEDS: Aspirin Chewable 81 MG TAB PO SCH (09:02)
[2018-07-08] MEDS: Finasteride 5 MG TAB PO SCH (09:02)
[2018-07-08] MEDS: Stress 600 With Zinc 1 TAB PO SCH (09:02)
[2018-07-08] MEDS: Gabapentin 300 MG CAP PO SCH ×2 (09:02→20:11)
[2018-07-08] MEDS: Multivit, Therapeutic 1 TAB PO SCH (09:03)
[2018-07-08] MEDS: Potassium Chloride 10 MEQ TAB PO SCH ×2 (09:03→17:33)
[2018-07-08] MEDS: Carvedilol 3.125 MG TAB PO SCH ×2 (09:04→17:33)
[2018-07-08] MEDS: Ferrous Sulfate 325 MG TAB PO SCH (09:04)
[2018-07-08] MEDS: SACUBITRIL PO SCH ×2 (09:05→20:12)
[2018-07-08] MEDS: VALSARTAN PO SCH ×2 (09:05→20:12)
[2018-07-08] MEDS: SYMBICORT 160/4.5 MCG INH SCH ×2 (09:05→20:13)
[2018-07-08] MEDS: SAW PALMETTO FRUIT PO SCH ×2 (09:06→20:13)
[2018-07-08] MEDS: METHYLCELLULOSE PO SCH (09:07)
[2018-07-08] MEDS: Atorvastatin Calcium 40 MG TAB PO SCH (20:10)
[2018-07-08] MEDS: Acetaminophen 500 MG TAB PO PRN (20:11)
[2018-07-09] MEDS: Senokot 8.6 MG TAB PO PRN ×2 (00:04→20:27)
[2018-07-09] MEDS: ALPRAZolam 0.5 MG TAB PO PRN ×2 (00:04→23:23)
[2018-07-09] MEDS: Ipratropium Bromide 2.5 ml Neb NEB SCH ×4 (05:57→23:23)
[2018-07-09] MEDS: SYMBICORT 160/4.5 MCG INH SCH ×2 (08:53→20:30)
[2018-07-09] MEDS: VALSARTAN PO SCH ×2 (08:53→20:31)
[2018-07-09] MEDS: SACUBITRIL PO SCH ×2 (08:53→20:31)
[2018-07-09] MEDS: SAW PALMETTO FRUIT PO SCH ×2 (08:53→20:30)
[2018-07-09] MEDS: METHYLCELLULOSE PO SCH (08:54)
[2018-07-09] MEDS: Gabapentin 300 MG CAP PO SCH ×2 (08:54→20:27)
[2018-07-09] MEDS: Apixaban 5 MG TAB PO SCH ×2 (08:54→20:27)
[2018-07-09] MEDS: Ferrous Sulfate 325 MG TAB PO SCH (08:55)
[2018-07-09] MEDS: Aspirin Chewable 81 MG TAB PO SCH (08:55)
[2018-07-09] MEDS: Furosemide 40 MG TAB PO SCH (08:56)
[2018-07-09] MEDS: Calcium Carbonate + Vit D 500 MG TAB PO SCH (08:56)
[2018-07-09] MEDS: Tamsulosin HCl 0.4 MG CAP PO SCH (08:56)
[2018-07-09] MEDS: Multivit, Therapeutic 1 TAB PO SCH (08:57)
[2018-07-09] MEDS: guaiFENesin ER 600 MG TAB PO SCH ×2 (08:57→20:27)
[2018-07-09] MEDS: Finasteride 5 MG TAB PO SCH (08:57)
[2018-07-09] MEDS: Stress 600 With Zinc 1 TAB PO SCH (08:57)
[2018-07-09] MEDS: Carvedilol 3.125 MG TAB PO SCH ×2 (08:58→17:09)
[2018-07-09] MEDS: Potassium Chloride 10 MEQ TAB PO SCH ×2 (08:58→17:09)
[2018-07-09] MEDS: Metolazone 5 MG TAB PO SCH (09:00)
[2018-07-09] MEDS: Acetaminophen 500 MG TAB PO PRN (17:13)
[2018-07-09] MEDS: Atorvastatin Calcium 40 MG TAB PO SCH (20:27)
[2018-07-09] MEDS: traMADol HCl 50 MG TAB PO PRN (23:49)
[2018-07-10] MEDS: Ipratropium Bromide 2.5 ml Neb NEB SCH ×4 (05:16→23:15)
[2018-07-10 05:30] LABS: Hemoglobin 10.7 g/dL (14.0-18.0); Platelet Count 179 thou/uL (130-400)
[2018-07-10] MEDS: Ferrous Sulfate 325 MG TAB PO SCH (08:28)
[2018-07-10] MEDS: Carvedilol 3.125 MG TAB PO SCH ×2 (08:28→17:12)
[2018-07-10] MEDS: Potassium Chloride 10 MEQ TAB PO SCH ×2 (08:29→17:12)
[2018-07-10] MEDS: Apixaban 5 MG TAB PO SCH ×2 (08:32→20:33)
[2018-07-10] MEDS: Metolazone 5 MG TAB PO SCH (08:32)
[2018-07-10] MEDS: Calcium Carbonate + Vit D 500 MG TAB PO SCH (08:33)
[2018-07-10] MEDS: Aspirin Chewable 81 MG TAB PO SCH (08:33)
[2018-07-10] MEDS: Gabapentin 300 MG CAP PO SCH ×2 (08:34→20:33)
[2018-07-10] MEDS: Furosemide 40 MG TAB PO SCH (08:34)
[2018-07-10] MEDS: Finasteride 5 MG TAB PO SCH (08:34)
[2018-07-10] MEDS: guaiFENesin ER 600 MG TAB PO SCH ×2 (08:35→20:33)
[2018-07-10] MEDS: Multivit, Therapeutic 1 TAB PO SCH (08:35)
[2018-07-10] MEDS: VALSARTAN PO SCH ×2 (08:36→20:32)
[2018-07-10] MEDS: SACUBITRIL PO SCH ×2 (08:36→20:32)
[2018-07-10] MEDS: Stress 600 With Zinc 1 TAB PO SCH (08:37)
[2018-07-10] MEDS: Tamsulosin HCl 0.4 MG CAP PO SCH (08:37)
[2018-07-10] MEDS: METHYLCELLULOSE PO SCH (08:44)
[2018-07-10] MEDS: SYMBICORT 160/4.5 MCG INH SCH ×2 (08:46→20:33)
[2018-07-10] MEDS: SAW PALMETTO FRUIT PO SCH ×3 (08:47→20:32)
[2018-07-10] MEDS: Acetaminophen 500 MG TAB PO PRN ×2 (14:56→23:33)
[2018-07-10] MEDS: Senokot 8.6 MG TAB PO PRN (20:33)
[2018-07-10] MEDS: Atorvastatin Calcium 40 MG TAB PO SCH (20:33)
[2018-07-10] MEDS: ALPRAZolam 0.5 MG TAB PO PRN (23:15)
[2018-07-11] MEDS: Ipratropium Bromide 2.5 ml Neb NEB SCH ×4 (05:47→23:58)
[2018-07-11] MEDS: Carvedilol 3.125 MG TAB PO SCH ×2 (08:57→16:56)
[2018-07-11] MEDS: Potassium Chloride 10 MEQ TAB PO SCH ×2 (08:57→16:56)
[2018-07-11] MEDS: Ferrous Sulfate 325 MG TAB PO SCH (08:57)
[2018-07-11] MEDS: Senokot 8.6 MG TAB PO PRN ×2 (08:58→20:30)
[2018-07-11] MEDS: Apixaban 5 MG TAB PO SCH ×2 (08:58→20:30)
[2018-07-11] MEDS: guaiFENesin ER 600 MG TAB PO SCH ×2 (08:58→20:30)
[2018-07-11] MEDS: Aspirin Chewable 81 MG TAB PO SCH (08:58)
[2018-07-11] MEDS: Multivit, Therapeutic 1 TAB PO SCH (08:58)
[2018-07-11] MEDS: Stress 600 With Zinc 1 TAB PO SCH (08:58)
[2018-07-11] MEDS: Furosemide 40 MG TAB PO SCH (08:59)
[2018-07-11] MEDS: Tamsulosin HCl 0.4 MG CAP PO SCH (08:59)
[2018-07-11] MEDS: Gabapentin 300 MG CAP PO SCH ×2 (09:00→20:30)
[2018-07-11] MEDS: Finasteride 5 MG TAB PO SCH (09:00)
[2018-07-11] MEDS: Calcium Carbonate + Vit D 500 MG TAB PO SCH (09:00)
[2018-07-11] MEDS: VALSARTAN PO SCH ×2 (09:01→20:31)
[2018-07-11] MEDS: SACUBITRIL PO SCH ×2 (09:01→20:31)
[2018-07-11] MEDS: SYMBICORT 160/4.5 MCG INH SCH ×2 (09:01→20:31)
[2018-07-11] MEDS: SAW PALMETTO FRUIT PO SCH ×2 (09:05→20:31)
[2018-07-11] MEDS: METHYLCELLULOSE PO SCH (09:05)
[2018-07-11] MEDS: traMADol HCl 50 MG TAB PO PRN (14:09)
[2018-07-11] MEDS: Atorvastatin Calcium 40 MG TAB PO SCH (20:30)
[2018-07-11] MEDS: ALPRAZolam 0.5 MG TAB PO PRN (23:59)
[2018-07-12 05:26] LABS: Hemoglobin 11.6 g/dL (14.0-18.0); Platelet Count 187 thou/uL (130-400)
[2018-07-12] MEDS: Ipratropium Bromide 2.5 ml Neb NEB SCH ×4 (05:59→23:54)
[2018-07-12] MEDS: Apixaban 5 MG TAB PO SCH ×2 (08:15→20:14)
[2018-07-12] MEDS: Polyethylene Glycol 3350 17 GM Packet PO SCH (08:15)
[2018-07-12] MEDS: Tamsulosin HCl 0.4 MG CAP PO SCH (08:15)
[2018-07-12] MEDS: Senokot 8.6 MG TAB PO SCH (08:15)
[2018-07-12] MEDS: Stress 600 With Zinc 1 TAB PO SCH (08:15)
[2018-07-12] MEDS: Carvedilol 3.125 MG TAB PO SCH ×2 (08:16→16:36)
[2018-07-12] MEDS: Potassium Chloride 10 MEQ TAB PO SCH ×2 (08:16→16:37)
[2018-07-12] MEDS: Aspirin Chewable 81 MG TAB PO SCH (08:16)
[2018-07-12] MEDS: Calcium Carbonate + Vit D 500 MG TAB PO SCH (08:16)
[2018-07-12] MEDS: Ferrous Sulfate 325 MG TAB PO SCH (08:16)
[2018-07-12] MEDS: Finasteride 5 MG TAB PO SCH (08:16)
[2018-07-12] MEDS: guaiFENesin ER 600 MG TAB PO SCH ×2 (08:16→20:14)
[2018-07-12] MEDS: Furosemide 40 MG TAB PO SCH (08:17)
[2018-07-12] MEDS: Metolazone 5 MG TAB PO SCH (08:17)
[2018-07-12] MEDS: Multivit, Therapeutic 1 TAB PO SCH (08:18)
[2018-07-12] MEDS: Gabapentin 300 MG CAP PO SCH ×2 (08:18→20:14)
[2018-07-12] MEDS: METHYLCELLULOSE PO SCH (08:26)
[2018-07-12] MEDS: VALSARTAN PO SCH ×2 (08:26→20:15)
[2018-07-12] MEDS: SAW PALMETTO FRUIT PO SCH ×2 (08:26→20:15)
[2018-07-12] MEDS: SACUBITRIL PO SCH ×2 (08:26→20:15)
[2018-07-12] MEDS: SYMBICORT 160/4.5 MCG INH SCH ×2 (08:27→20:15)
[2018-07-12] MEDS: Nystatin Cream 15 GM TUBE TOP PRN (16:37)
[2018-07-12] MEDS: traMADol HCl 50 MG TAB PO PRN (16:40)
[2018-07-12] MEDS: Atorvastatin Calcium 40 MG TAB PO SCH (20:14)
[2018-07-12] MEDS: ALPRAZolam 0.5 MG TAB PO PRN (23:55)
[2018-07-13] MEDS: Ipratropium Bromide 2.5 ml Neb NEB SCH ×4 (05:08→23:48)
[2018-07-13] MEDS: Polyethylene Glycol 3350 17 GM Packet PO SCH (08:25)
[2018-07-13] MEDS: Stress 600 With Zinc 1 TAB PO SCH (08:26)
[2018-07-13] MEDS: Multivit, Therapeutic 1 TAB PO SCH (08:26)
[2018-07-13] MEDS: Carvedilol 3.125 MG TAB PO SCH ×2 (08:26→17:35)
[2018-07-13] MEDS: Ferrous Sulfate 325 MG TAB PO SCH (08:26)
[2018-07-13] MEDS: Potassium Chloride 10 MEQ TAB PO SCH ×2 (08:26→17:35)
[2018-07-13] MEDS: Tamsulosin HCl 0.4 MG CAP PO SCH (08:27)
[2018-07-13] MEDS: Senokot 8.6 MG TAB PO SCH (08:27)
[2018-07-13] MEDS: Apixaban 5 MG TAB PO SCH ×2 (08:28→20:19)
[2018-07-13] MEDS: guaiFENesin ER 600 MG TAB PO SCH ×2 (08:28→20:19)
[2018-07-13] MEDS: Furosemide 40 MG TAB PO SCH (08:28)
[2018-07-13] MEDS: Calcium Carbonate + Vit D 500 MG TAB PO SCH (08:28)
[2018-07-13] MEDS: Finasteride 5 MG TAB PO SCH (08:28)
[2018-07-13] MEDS: Gabapentin 300 MG CAP PO SCH ×2 (08:28→20:19)
[2018-07-13] MEDS: Aspirin Chewable 81 MG TAB PO SCH (08:28)
[2018-07-13] MEDS: SAW PALMETTO FRUIT PO SCH ×2 (08:32→20:18)
[2018-07-13] MEDS: METHYLCELLULOSE PO SCH (08:32)
[2018-07-13] MEDS: SYMBICORT 160/4.5 MCG INH SCH ×2 (08:33→20:19)
[2018-07-13] MEDS: SACUBITRIL PO SCH ×2 (08:34→20:18)
[2018-07-13] MEDS: VALSARTAN PO SCH ×2 (08:34→20:18)
[2018-07-13] MEDS: traMADol HCl 50 MG TAB PO PRN (17:36)
[2018-07-13] MEDS: Atorvastatin Calcium 40 MG TAB PO SCH (20:19)
[2018-07-13] MEDS: ALPRAZolam 0.5 MG TAB PO PRN (23:59)
[2018-07-14] MEDS: Acetaminophen 500 MG TAB PO PRN ×3 (03:17→20:55)
[2018-07-14 05:32] LABS: Hemoglobin 10.4 g/dL (14.0-18.0); Platelet Count 177 thou/uL (130-400)
[2018-07-14] MEDS: Ipratropium Bromide 2.5 ml Neb NEB SCH ×4 (05:55→22:56)
[2018-07-14] MEDS: Finasteride 5 MG TAB PO SCH (08:44)
[2018-07-14] MEDS: Polyethylene Glycol 3350 17 GM Packet PO SCH (08:44)
[2018-07-14] MEDS: Tamsulosin HCl 0.4 MG CAP PO SCH (08:45)
[2018-07-14] MEDS: Apixaban 5 MG TAB PO SCH ×2 (08:45→20:55)
[2018-07-14] MEDS: Furosemide 40 MG TAB PO SCH (08:45)
[2018-07-14] MEDS: Stress 600 With Zinc 1 TAB PO SCH (08:46)
[2018-07-14] MEDS: Multivit, Therapeutic 1 TAB PO SCH (08:46)
[2018-07-14] MEDS: guaiFENesin ER 600 MG TAB PO SCH ×2 (08:46→20:55)
[2018-07-14] MEDS: Senokot 8.6 MG TAB PO SCH (08:48)
[2018-07-14] MEDS: Metolazone 5 MG TAB PO SCH (08:48)
[2018-07-14] MEDS: Carvedilol 3.125 MG TAB PO SCH ×2 (08:49→16:36)
[2018-07-14] MEDS: Potassium Chloride 10 MEQ TAB PO SCH ×2 (08:49→16:36)
[2018-07-14] MEDS: Aspirin Chewable 81 MG TAB PO SCH (08:49)
[2018-07-14] MEDS: Ferrous Sulfate 325 MG TAB PO SCH (08:49)
[2018-07-14] MEDS: Calcium Carbonate + Vit D 500 MG TAB PO SCH (08:50)
[2018-07-14] MEDS: Gabapentin 300 MG CAP PO SCH ×2 (08:56→20:55)
[2018-07-14] MEDS: SAW PALMETTO FRUIT PO SCH ×2 (10:56→20:54)
[2018-07-14] MEDS: METHYLCELLULOSE PO SCH (10:56)
[2018-07-14] MEDS: VALSARTAN PO SCH ×2 (10:57→20:54)
[2018-07-14] MEDS: SACUBITRIL PO SCH ×2 (10:57→20:54)
[2018-07-14] MEDS: SYMBICORT 160/4.5 MCG INH SCH ×2 (10:58→20:54)
[2018-07-14] MEDS: Atorvastatin Calcium 40 MG TAB PO SCH (20:55)
[2018-07-14] MEDS ORDERED: Loratadine 10 MG TAB PO SCH (22:45)
[2018-07-14] MEDS: ALPRAZolam 0.5 MG TAB PO PRN (23:06)
[2018-07-15 02:52] LABS: Clarity Hazy (Clear); Glucose, Urine (Dipstick) Negative (Negative); Leukocyte Large (Negative); Nitrite Negative (Negative); Protein, Urine (Dipstick) 100 mg/dL (Neg-Trace)
[2018-07-15 02:53] LABS: Bilirubin Negative (Negative); Blood, Urine Moderate (Negative); Urobilinogen 0.2 mg/dL (0.2-1.0)
[2018-07-15 02:58] LABS: Bacteria/HPF Rare-Few HPF (None Seen); RBC/HPF 21-50 HPF (0-3); Squamous Epithelial 0-3 HPF (0-3); Transitional Epithelial 0-3 HPF (0-3)
[2018-07-15] MEDS: Acetaminophen 500 MG TAB PO PRN ×2 (03:28→20:37)
[2018-07-15] MEDS: Ipratropium Bromide 2.5 ml Neb NEB SCH ×4 (05:50→23:50)
[2018-07-15] MEDS ORDERED: Ciprofloxacin 500 MG TAB PO SCH (07:15)
[2018-07-15] MEDS: SACUBITRIL PO SCH ×2 (07:56→20:32)
[2018-07-15] MEDS: VALSARTAN PO SCH ×2 (07:56→20:32)
[2018-07-15] MEDS: METHYLCELLULOSE PO SCH (07:57)
[2018-07-15] MEDS: SYMBICORT 160/4.5 MCG INH SCH ×2 (07:57→20:31)
[2018-07-15] MEDS: SAW PALMETTO FRUIT PO SCH ×2 (07:57→20:31)
[2018-07-15] MEDS: Multivit, Therapeutic 1 TAB PO SCH (07:58)
[2018-07-15] MEDS: Polyethylene Glycol 3350 17 GM Packet PO SCH (07:58)
[2018-07-15] MEDS: Aspirin Chewable 81 MG TAB PO SCH (07:59)
[2018-07-15] MEDS: Stress 600 With Zinc 1 TAB PO SCH (07:59)
[2018-07-15] MEDS: Tamsulosin HCl 0.4 MG CAP PO SCH (08:00)
[2018-07-15] MEDS: Apixaban 5 MG TAB PO SCH ×2 (08:00→20:31)
[2018-07-15] MEDS: Finasteride 5 MG TAB PO SCH (08:00)
[2018-07-15] MEDS: Senokot 8.6 MG TAB PO SCH (08:01)
[2018-07-15] MEDS: Calcium Carbonate + Vit D 500 MG TAB PO SCH (08:01)
[2018-07-15] MEDS: Potassium Chloride 10 MEQ TAB PO SCH ×2 (08:01→17:54)
[2018-07-15] MEDS: Furosemide 40 MG TAB PO SCH (08:02)
[2018-07-15] MEDS: Ferrous Sulfate 325 MG TAB PO SCH (08:02)
[2018-07-15] MEDS: guaiFENesin ER 600 MG TAB PO SCH ×2 (08:02→20:31)
[2018-07-15] MEDS: Loratadine 10 MG TAB PO SCH (08:02)
[2018-07-15] MEDS: Carvedilol 3.125 MG TAB PO SCH ×2 (08:03→17:54)
[2018-07-15] MEDS: Gabapentin 300 MG CAP PO SCH ×2 (08:03→20:31)
[2018-07-15 08:14] VITALS: BMI 34.7
[2018-07-15 18:02] VITALS: TEMP 98.4
[2018-07-15] MEDS: Ciprofloxacin 500 MG TAB PO SCH (20:31)
[2018-07-15] MEDS: Atorvastatin Calcium 40 MG TAB PO SCH (20:31)
[2018-07-15] MEDS: ALPRAZolam 0.5 MG TAB PO PRN (23:50)
[2018-07-16 04:13] LABS: Hemoglobin 10.5 g/dL (14.0-18.0); Platelet Count 183 thou/uL (130-400)
[2018-07-16] MEDS: Ipratropium Bromide 2.5 ml Neb NEB SCH (05:40)
[2018-07-16] MEDS: Ciprofloxacin 500 MG TAB PO SCH (05:40)
[2018-07-16 05:56] VITALS: BP 111/67
[2018-07-16] MEDS: SACUBITRIL PO SCH (08:26)
[2018-07-16] MEDS: METHYLCELLULOSE PO SCH (08:26)
[2018-07-16] MEDS: SAW PALMETTO FRUIT PO SCH (08:26)
[2018-07-16] MEDS: SYMBICORT 160/4.5 MCG INH SCH (08:26)
[2018-07-16] MEDS: VALSARTAN PO SCH (08:26)
[2018-07-16] MEDS: Calcium Carbonate + Vit D 500 MG TAB PO SCH (08:28)
[2018-07-16] MEDS: Stress 600 With Zinc 1 TAB PO SCH (08:28)
[2018-07-16] MEDS: Finasteride 5 MG TAB PO SCH (08:28)
[2018-07-16] MEDS: Gabapentin 300 MG CAP PO SCH (08:29)
[2018-07-16] MEDS: Apixaban 5 MG TAB PO SCH (08:29)
[2018-07-16] MEDS: Tamsulosin HCl 0.4 MG CAP PO SCH (08:29)
[2018-07-16] MEDS: Potassium Chloride 10 MEQ TAB PO SCH (08:29)
[2018-07-16] MEDS: Ferrous Sulfate 325 MG TAB PO SCH (08:29)
[2018-07-16] MEDS: Metolazone 5 MG TAB PO SCH (08:30)
[2018-07-16] MEDS: Loratadine 10 MG TAB PO SCH (08:30)
[2018-07-16] MEDS: Multivit, Therapeutic 1 TAB PO SCH (08:30)
[2018-07-16] MEDS: Carvedilol 3.125 MG TAB PO SCH (08:30)
[2018-07-16] MEDS: guaiFENesin ER 600 MG TAB PO SCH (08:30)
[2018-07-16] MEDS: Aspirin Chewable 81 MG TAB PO SCH (08:30)
[2018-07-16] MEDS: Furosemide 40 MG TAB PO SCH (08:31)
[2018-07-16] MEDS: Senokot 8.6 MG TAB PO SCH (08:31)
[2018-07-16] MEDS: Polyethylene Glycol 3350 17 GM Packet PO SCH (08:32)
== END 2018-07-16 09:00 | disposition home health service (06) | DRG 303 ==
LOC: BURMED 16:56
PROVIDERS: ADMIT Family Medicine; ATTEND Family Medicine
DX: I25.5 Ischemic cardiomyopathy (principal); I82.403 Acute embolism and thrombosis of unspecified deep veins of lower extremity, bilateral; R53.81 Other malaise; D69.59 Other secondary thrombocytopenia; T45.515A Adverse effect of anticoagulants, initial encounter; C67.9 Malignant neoplasm of bladder, unspecified; J44.9 Chronic obstructive pulmonary disease, unspecified; I10 Essential (primary) hypertension; E78.5 Hyperlipidemia, unspecified; N40.0 Benign prostatic hyperplasia without lower urinary tract symptoms; R30.0 Dysuria; Z95.1 Presence of aortocoronary bypass graft; Z79.82 Long term (current) use of aspirin
CPT/HCPCS: 36415; 80053; 81001; 81003; 81015; 82565; 85014; 85018; 85025; 85049; 87077; 87086; 87186

== ENCOUNTER 2018-08-11 12:31 | Emergency (ER) | payer MEDICARE ==
[2018-08-11 13:16] LABS: Bilirubin Negative (Negative); Blood, Urine Large (Negative); Clarity Turbid (Clear); Glucose, Urine (Dipstick) Negative (Negative); Leukocyte Large (Negative); Nitrite Negative (Negative); Protein, Urine (Dipstick) 30 mg/dL (Neg-Trace); Specific Gravity, Urine 1.009 (1.002-1.036); Urobilinogen 0.2 mg/dL (0.2-1.0); pH, Urine 5.5 (5.0-9.0)
[2018-08-11 13:21] LABS: Bacteria/HPF Rare-Few HPF (None Seen); RBC/HPF 21-50 HPF (0-3); Squamous Epithelial 0-3 HPF (0-3)
[2018-08-11 13:22] LABS: WBC/HPF 21-50 HPF (0-3)
== END 2018-08-11 13:36 | disposition home or self-care (01) ==
LOC: BURERS 12:31
DX: N30.01 Acute cystitis with hematuria (principal); J44.9 Chronic obstructive pulmonary disease, unspecified; I10 Essential (primary) hypertension; I25.10 Atherosclerotic heart disease of native coronary artery without angina pectoris; K21.9 Gastro-esophageal reflux disease without esophagitis; Z87.891 Personal history of nicotine dependence; Z79.899 Other long term (current) drug therapy; Z79.51 Long term (current) use of inhaled steroids; Z79.82 Long term (current) use of aspirin
CPT/HCPCS: 81003; 81015; 99283

== ENCOUNTER 2019-05-20 17:09 | Inpatient (IN) | payer MEDICARE ==
[2019-05-20] MEDS: Potassium Chloride 10 MEQ TAB PO SCH (21:38)
[2019-05-20] MEDS: Trospium 20 MG TAB PO SCH (21:38)
[2019-05-20] MEDS: Carvedilol 12.5 MG TAB PO SCH (21:38)
[2019-05-20] MEDS: Arformoterol 15 MCG/2 ML NEB NEB SCH (21:41)
[2019-05-20] MEDS: Mometasone/Formoterol 60 PUFF AER INH SCH (21:45)
[2019-05-20] MEDS: Budesonide 0.5 MG/2 ML NEB NEB SCH (21:46)
[2019-05-20] MEDS: Diphenoxylate HCl/Atropine Tablet PO SCH (21:57)
[2019-05-21] MEDS: Mometasone/Formoterol 60 PUFF AER INH SCH (09:25)
[2019-05-21] MEDS: Potassium Chloride 10 MEQ TAB PO SCH ×2 (09:25→17:11)
[2019-05-21] MEDS: Trospium 20 MG TAB PO SCH ×2 (09:25→20:25)
[2019-05-21] MEDS: Carvedilol 12.5 MG TAB PO SCH ×2 (09:25→20:24)
[2019-05-21] MEDS: Arformoterol 15 MCG/2 ML NEB NEB SCH (09:29)
[2019-05-21] MEDS: Budesonide 0.5 MG/2 ML NEB NEB SCH (09:30)
[2019-05-21] MEDS: Diphenoxylate HCl/Atropine Tablet PO SCH (09:34)
[2019-05-21] MEDS ORDERED: METHYLCELLULOSE PO PRN (10:14)
[2019-05-21] MEDS ORDERED: [UNRECOGNIZED DRUG - OTHER] PO PRN (10:14)
[2019-05-21] MEDS ORDERED: Furosemide 40 MG TAB PO PRN (10:14)
[2019-05-21] MEDS ORDERED: [UNRECOGNIZED DRUG - OTHER] PO PRN (10:14)
[2019-05-21] MEDS ORDERED: Clotrimazole 1% Cream 15 GM TUBE TOP PRN (10:14)
[2019-05-21] MEDS ORDERED: Metamucil PACK PO PRN (11:19)
[2019-05-21] MEDS ORDERED: Ipratropium Bromide 2.5 ml Neb NEB SCH (12:00)
[2019-05-21] MEDS ORDERED: Hydrochlorothiazide 25 MG TAB PO SCH (12:45)
[2019-05-21] MEDS ORDERED: Digoxin 0.125 MG TAB PO SCH (12:45)
[2019-05-21] MEDS ORDERED: Losartan Potassium 50 MG TAB PO SCH (12:45)
[2019-05-21] MEDS: Docusate 100 MG CAP PO PRN (18:13)
[2019-05-21] MEDS: Mometasone/Formoterol 200/5 60 PUFF INH SCH (18:14)
[2019-05-21] MEDS ORDERED: Polyethylene Glycol 3350 17 GM Packet PO PRN (18:58)
[2019-05-21] MEDS ORDERED: LOMOTIL PO SCH (21:00)
--- NOTE | 2019-05-21 22:12 | HP ---
CHIEF COMPLAINT: Need for skilled rehabilitation. HISTORY OF PRESENT ILLNESS: Mr. Cortes is a 73-year-old male with a past medical history of coronary artery disease, congestive heart failure, hypertension, COPD, bladder cancer, lung cancer, and chronic renal insufficiency, who presents to [facility] for evaluation and skilled rehab. He was admitted to [facility] from May 03 through May 20, 2019, for acute hypoxic respiratory failure secondary to Pseudomonas pneumonia versus lung cancer, lung cancer, left pleural effusion, fungal rash on the legs, leukopenia, anemia, and diarrhea secondary to Pseudomonas. He initially presented secondary to worsening shortness of breath at rest, cough, which consisted of brown sputum and blood as well as wheezing, palpitations, and lightheadedness. He also had had some intermittent chest pain. EKG had shown some changes of lateral ischemia, but initial troponin was negative. He had a CTA of his chest, which showed no evidence of pulmonary emboli but a left lower lobe pneumonia. He was started on IV antibiotics and was admitted for further workup. He was treated with IV vancomycin and cefepime initially. Pulmonary consultation was performed and he was switched to Brovana twice daily and Pulmicort twice daily and was requiring up to 4 L of oxygen. He was transitioned to oral Levaquin on May 12 and received that up through May 19, which was a complete course. He also was treated with IV steroids, which were eventually transitioned to oral prednisone. These were discontinued on the . Since he was having persistent complaint of shortness of breath and cough, he was discharged here with recommendation to be restarted on a prednisone taper of 10 mg for five days. Of note, the patient's O2 requirement was stable during his last several days in [place]. Regarding his lung cancer, the patient did receive radiation therapy while he was hospitalized and has completed that for now, followed by Dr. Villagran and Dr. Aguilar. His next dose of chemo was due on June 13. The patient also had diarrhea on admission and tested negative for Clostridium difficile, Campylobacter, and Shiga toxin. He did have elevated fecal lactoferrin, but this diarrhea resolved by the time of discharge. In fact, today he complains of constipation with hard formed balls of stool. He is currently on docusate and Metamucil. He is having a little gas, but no abdominal pain reported. The patient was also noted to have mild fungal rash on his left leg and was started on clotrimazole cream. This is complicated by some anasarca and dry skin flaking in that area. The patient presented with leukopenia, which resolved, but he has had a persistent anemia throughout his stay with a baseline hemoglobin in the mid 8s. The patient during his hospitalization, was significantly deconditioned and has been transferred here for PT and OT. He currently lives alone but does have a brother that lives in town. Of note, the patient has also suffered a significant loss as his mother recently and would have been 89 this past week. All of his family members are currently in the [facility] to attend her . PAST MEDICAL HISTORY: 1. Chronic systolic congestive heart failure with baseline LVEF of 15% to 20% per last echocardiogram, followed by Dr. Chapman. 2. Chronic obstructive pulmonary disease. 3. Coronary artery disease, modoc artery, modoc heart. Absence of angina. 4. Left hilar lung cancer, followed by Dr. Villagran and Dr. Aguilar. Completed radiation. Still undergoing chemo. 5. Hypertension. 6. Status post automatic cardioverter/defibrillator. 7. Bladder cancer with BPH with lower urinary tract symptoms based on medication list. PAST SURGICAL HISTORY: 1. Coronary artery bypass grafting. 2. Transurethral resection of the prostate. 3. AICD. 4. Femoral embolectomy. FAMILY HISTORY: Father had heart disease. SOCIAL HISTORY: The patient is a former smoker, but denies alcohol or drug use. Lives alone. Again, his brother lives locally in [place]. He also has three sisters, who live in [place], where he is from. Code status is listed as full resuscitation. ALLERGIES: TO HEPARIN. MEDICATIONS: 1. Saw palmetto 450 mg daily. 2. Lomotil 1 p.o. q.i.d. p.r.n. 3. Mucinex 600 mg p.o. b.i.d. p.r.n. 4. Citrucel 1 p.o. daily p.r.n. 5. Losartan/hydrochlorothiazide 100/25 one p.o. daily. 6. Aspirin 81 mg p.o. daily. 7. Detrol 4 mg p.o. b.i.d. 8. Potassium chloride extended release 10 mEq p.o. b.i.d. 9. Hyosyne 1 p.o. q.i.d. p.r.n. 10. Colace 100 mg p.o. daily p.r.n. 11. Lanoxin 0.125 p.o. daily. 12. Furosemide 40 mg p.o. daily p.r.n. 13. Carvedilol 12.5 mg p.o. b.i.d. 14. Spiriva 1 inhalation daily. 15. Symbicort two puffs b.i.d. 16. Omeprazole 40 mg p.o. b.i.d. 17. Proscar 5 mg p.o. daily. 18. Atorvastatin 40 mg one p.o. daily. 19. Zinc 50 mg p.o. daily. 20. Tamsulosin 0.4 mg p.o. daily. 21. Multivitamin one p.o. daily. 22. Atrovent HFA two puffs inhaled q.i.d. p.r.n. 23. ProAir HFA two puffs inhaled q.4 hours p.r.n. 24. Prednisone Dosepak 10 mg as directed over five days. 25. Clotrimazole 1% cream topically b.i.d. to the legs p.r.n. REVIEW OF SYSTEMS: GENERAL: No fever. Positive fatigue and weight loss. Generalized weakness. HEENT: Denies problems with vision, sore throat, ear pain, or rhinorrhea. CARDIOVASCULAR: Denies chest pain, palpitations, orthopnea, or PND. RESPIRATORY: Positive for cough with yellow blood-tinged sputum. Positive wheezing. Positive shortness of breath. GI: Positive constipation. Diarrhea resolved. No abdominal pain. Positive burping. No melena or hematochezia. GENITOURINARY: Positive for urinary hesitancy, symptoms of incomplete emptying, incontinence. Denies dysuria or gross hematuria. LYMPHATIC: The patient has some edema of the extremities, but denies lymphadenopathy. HEMATOLOGIC: Denies bleeding. History of anemia. ENDOCRINE: Positive weight loss. PSYCH: Denies depression or anxiety. PHYSICAL EXAMINATION: VITAL SIGNS: Temperature 97.8, pulse 89, respirations 20, O2 saturation 94% on 3.5 L/minute, and blood pressure 103/57. GENERAL: Well-developed, well-nourished male, in no acute distress. Alert and oriented x3, sitting upright in chair with feet elevated. HEENT: Normocephalic, atraumatic. Pupils equally round and reactive to light and accommodation. Extraocular muscles intact. Nares are patent without discharge. Tongue protrudes in the midline. NECK: Supple without lymphadenopathy, thyromegaly, JVD, or bruit. HEART: Regular rate and rhythm with distant sounds. No murmurs, clicks, rubs, or gallops. LUNGS: Coarse rhonchi auscultated bilaterally anteriorly. Diminished air entry throughout posteriorly with both inspiratory and expiratory rhonchi and rare wheezing in all juarez. ABDOMEN: Positive bowel sounds in all four quadrants. Soft, nontender, and nondistended. No masses, guarding, or rebound tenderness. EXTREMITIES: No cyanosis or clubbing. The patient has some nonpitting edema to the bilateral upper extremities from the forearms distally. In addition, he has 2 mm nonpitting edema with pink discoloration to the bilateral lower extremities from the mid tibia distally including the feet, more pronounced on the left with dry skin. NEUROLOGIC: Cranial nerves 2 through 12 grossly intact without focal deficits. Generalized weakness. LABORATORY STUDIES: CBC from May 17 with white count 8.1 with 87% neutrophils and 11% lymphocytes, hemoglobin 8.7, hematocrit 27.3 with normal MCV, MCH, low MCHC, and elevated RDW, platelets 120. Chemistry profile from May 17 with sodium 139, potassium 4.4, chloride 101, bicarb 34, BUN 19, creatinine 0.79, glucose 83, calcium 8.4, LFTs normal. Blood culture from May 03, one of two positive for coagulase-negative Staph. Stool culture from May 04, presumptive Pseudomonas. Sputum culture from May 04, Pseudomonas. Stool studies as per HPI. Last chest x-ray May 14, 2019, shows left pleural fluid, hemidiaphragm elevation, and stable bibasilar atelectasis. CTA from May 03 shows a dense area of consolidation in the left upper lobe, which is stable but interval development of consolidation in the left lower lobe, mediastinal lymphadenopathy, COPD, mild left hydronephrosis, partially imaged, stable hypodense lesion in left kidney, no evidence of PE, small left pleural effusion. ASSESSMENT AND PLAN: 1. Physical deconditioning. The patient is physically deconditioned from his chronic comorbidities and prolonged hospital stay for acute respiratory failure due to pneumonia and lung cancer. PT and OT have been consulted as well as Speech Therapy. Dietary case management. 2. Fungal rash of the legs. The patient is on clotrimazole. 3. Chronic obstructive pulmonary disease. The patient will be continued on his pulmonary regimen with a prednisone taper over five days, secondary to persistent complaint of shortness of breath. His O2 requirement has been stable and we will continue to monitor that. 4. Anemia. We will repeat his CBC on Thursday. 5. Constipation. The patient is on stool softener and fiber. We will add MiraLAX to be given p.r.n. 6. Chronic systolic congestive heart failure. The patient will be continued on his beta starla, angiotensin receptor starla, digoxin, hydrochlorothiazide, and Lasix p.r.n. We will order digoxin level on Thursday. 7. Coronary artery disease. The patient is on aspirin and statin and other medications as above. 8. Hypertension. The patient's blood pressure will be monitored for goal of 140/90. 9. BPH. The patient will be continued on his Proscar. He was on tamsulosin, but this was not continued here. He is on trospium per formulary substitution for Detrol. 10. Lung cancer. The patient did receive his last radiation treatment while hospitalized and will be scheduled to receive his next chemotherapy treatment coordinated through Dr. Aguilar on June 13. 11. Prophylaxis. The patient will be continued on his b.i.d. PPI that has been ordered. At this time, the patient is not a candidate for Lovenox prophylaxis in my opinion due to blood in his sputum and I do not feel he will tolerate SCDs. Therefore, we will ambulate him in the halls to the best of our ability for deep venous thrombosis prevention. 12. Code status, full resuscitation. Job ID: [id number]
[2019-05-22] MEDS: Mometasone/Formoterol 200/5 60 PUFF INH SCH ×2 (06:00→18:17)
[2019-05-22] MEDS ORDERED: Sodium Chloride 0.9% 500 ML IV SCH ×3 (06:45→07:00)
[2019-05-22] MEDS: Losartan Potassium 50 MG TAB PO SCH (08:51)
[2019-05-22] MEDS: Atorvastatin Calcium 40 MG TAB PO SCH (08:52)
[2019-05-22] MEDS: Trospium 20 MG TAB PO SCH ×2 (08:52→20:40)
[2019-05-22] MEDS: Hydrochlorothiazide 25 MG TAB PO SCH (08:52)
[2019-05-22] MEDS: predniSONE 10 MG TAB PO SCH (08:52)
[2019-05-22] MEDS: Aspirin Chewable 81 MG TAB PO SCH (08:53)
[2019-05-22] MEDS: Carvedilol 12.5 MG TAB PO SCH ×2 (08:53→20:40)
[2019-05-22] MEDS: Potassium Chloride 10 MEQ TAB PO SCH ×2 (08:53→17:08)
[2019-05-22] MEDS: Digoxin 0.125 MG TAB PO SCH (08:53)
[2019-05-22] MEDS: Docusate 100 MG CAP PO PRN (08:56)
[2019-05-22] MEDS: Finasteride 5 MG TAB PO SCH (08:56)
[2019-05-22] MEDS: guaiFENesin ER 600 MG TAB PO PRN (08:56)
[2019-05-22] MEDS ORDERED: Non-Formulary Item 1 EACH (Losartan/Hydrochlorothiazide [Losartan-Hctz 100-25 Mg Tab] 1 E PO SCH (09:00)
[2019-05-22] MEDS ORDERED: (Saw Palmetto Fruit [Saw Palmetto] 450 MG) PO SCH (09:00)
[2019-05-22 13:13] LABS: Platelet Count 71 thou/uL (130-400)
[2019-05-22 13:15] LABS: #Basophils 0.1 thou/uL (0.0-0.2); #Lymphocytes 0.2 thou/uL (1.20-3.40); #Monocytes 0.6 thou/uL (0.11-0.59); #Neutrophils 6.9 thou/uL (1.40-6.50); %Basophils 1.1 % (0.0-1.0); %Eosinophils 0.3 % (0.0-10.0); %Lymphocytes 1.9 % (21.0-51.0); %Monocytes 7.1 % (0.0-10.0); %Neutrophils 89.6 % (42.0-75.0); Hemoglobin 9.5 g/dL (14.0-18.0); Hypochromia SLIGHT = 6-15 cells (100X) (0-5/hpf); MDiff Complete? YES; Macrocytosis SLIGHT = 6-15 cells (100X) (0-5/hpf); Mean Corpuscular HGB CONC 29.3 g/dL (32.0-36.0); Mean Corpuscular Hemoglobin 25.7 pg (27.0-31.0); Mean Corpuscular Volume 87.8 fL (78.0-98.0); Mean Platelet Volume 8.5 fL (7.4-10.4); Microcytosis SLIGHT = 6-15 cells (100X) (0-5/hpf); Poikilocytosis SLIGHT = 6-15 cells (100X) (0-5/hpf); Polychromasia SLIGHT = 2-3 cells (100X) (0-2/hpf); RBC Distribution Width 24.2 % (11.5-14.5); White Blood Cell (WBC) Count 7.7 thou/uL (4.8-10.8)
[2019-05-22 13:21] LABS: ALT (SGPT) 180 U/L (8-55); AST (SGOT) 123 U/L (5-34); Albumin 2.9 g/dL (3.4-4.8); Alkaline Phosphatase 240 U/L (40-110); Anion Gap 16 mmol/L (10-20); BUN (Urea Nitrogen) 25 mg/dL (8.4-25.7); Bilirubin, Total 0.5 mg/dL (0.2-1.2); Calc. Creatinine Clearance 100 mL/min (70-130); Calcium 8.3 mg/dL (7.8-10.44); Carbon Dioxide 24 mmol/L (23-31); Chloride 106 mmol/L (98-107); Estimated GFR-MDRD 89; Globulin 3.2 g/dL (2.4-3.5); Glucose 114 mg/dL (83-110); Potassium 4.3 mmol/L (3.5-5.1); Protein, Total 6.1 g/dL (5.8-8.1); Sodium 142 mmol/L (136-145)
--- NOTE | 2019-05-22 13:45 | RAD ---
CHEST 2 VIEWS: Date: 05/22/2019 Comparison is made with the 05/14/2019 study. Elevation of the left hemidiaphragm is no different than before. A small amount of pleural fluid appe ars to be present on the left and is no different either. There is some increased haziness in the rig ht base compared to the prior study suggesting a small developing infiltrate may be present here. The upper lobes are clear. The heart size is normal. The MediPort catheter and cardiac pacer remain in p lace. IMPRESSION: 1. Possible developing infiltrate in the right lower lobe near the diaphragm. 2. Elevated left hemidiaphragm and small left pleural effusion, unchanged from the 05/14/2019 study. 3. No sign of congestive failure. POS: HOME
[2019-05-22 16:18] LABS: Bilirubin Small (Negative); Blood, Urine Small (Negative); Clarity Cloudy (Clear); Glucose, Urine (Dipstick) Negative (Negative); Leukocyte Small (Negative); Nitrite Negative (Negative); Protein, Urine (Dipstick) 30 mg/dL (Neg-Trace)
[2019-05-22 16:27] LABS: Bacteria/HPF 2+ HPF (None Seen); Crystals/HPF None Seen HPF (Negative); Oval Fat Bodies/HPF None Seen HPF (None Seen); Renal Epithelial None Seen HPF (None Seen); Sperm/HPF None Seen HPF (None Seen); Transitional Epithelial None Seen HPF (None Seen); Trichomonas/HPF None Seen HPF (None Seen); WBC/HPF Greater Than 50 HPF (0-3); Yeast-Budding Rare HPF (None Seen); Yeast-Hyphae None Seen HPF (None Seen)
[2019-05-22 16:28] LABS: Broad Cast None Seen LPF (None Seen); Calcium Oxalate Crystals None Seen HPF (None Seen); Cellular Cast None Seen LPF (None Seen); Epithelial Cast None Seen LPF (None Seen); Fatty Cast None Seen LPF (None Seen); Other Casts None Seen LPF (None Seen); Other Casts/LPF None Seen LPF (0-3 Hyaline); Red Blood Cell Cast None Seen LPF (None Seen); Triple Phosphate Crystal None Seen HPF (None Seen); Unclassified Crystals None Seen HPF (None Seen); Waxy Cast None Seen LPF (None Seen); White Blood Cell Cast None Seen LPF (None Seen)
[2019-05-22 16:30] LABS: Urine Culture Reflex No No
[2019-05-23 05:43] LABS: ALT (SGPT) 181 U/L (8-55); AST (SGOT) 124 U/L (5-34); Albumin 2.8 g/dL (3.4-4.8); Alkaline Phosphatase 231 U/L (40-110); Anion Gap 16 mmol/L (10-20); BUN (Urea Nitrogen) 28 mg/dL (8.4-25.7); Bilirubin, Total 0.4 mg/dL (0.2-1.2); Calc. Creatinine Clearance 86 mL/min (70-130); Calcium 8.3 mg/dL (7.8-10.44); Carbon Dioxide 23 mmol/L (23-31); Chloride 106 mmol/L (98-107); Digoxin 0.21 ng/mL (0.8-2.0); Estimated GFR-MDRD 75; Globulin 2.9 g/dL (2.4-3.5); Glucose 95 mg/dL (83-110); Potassium 4.6 mmol/L (3.5-5.1); Protein, Total 5.7 g/dL (5.8-8.1); Sodium 140 mmol/L (136-145)
[2019-05-23 05:50] LABS: #Basophils 0.1 thou/uL (0.0-0.2); #Lymphocytes 0.2 thou/uL (1.20-3.40); #Monocytes 0.7 thou/uL (0.11-0.59); #Neutrophils 6.3 thou/uL (1.40-6.50); %Basophils 1.1 % (0.0-1.0); %Eosinophils 0.4 % (0.0-10.0); %Lymphocytes 2.7 % (21.0-51.0); %Monocytes 9.1 % (0.0-10.0); %Neutrophils 86.7 % (42.0-75.0); Hemoglobin 8.8 g/dL (14.0-18.0); Mean Corpuscular HGB CONC 30.7 g/dL (32.0-36.0); Mean Corpuscular Hemoglobin 26.1 pg (27.0-31.0); Mean Corpuscular Volume 85.2 fL (78.0-98.0); Mean Platelet Volume 11.1 fL (7.4-10.4); Platelet Count 60 thou/uL (130-400); RBC Distribution Width 23.5 % (11.5-14.5); Red Blood Cell (RBC) Count 3.36 mill/uL (4.70-6.10); White Blood Cell (WBC) Count 7.2 thou/uL (4.8-10.8)
[2019-05-23 05:52] LABS: Hypochromia SLIGHT = 6-15 cells (100X) (0-5/hpf); Ovalocytes SLIGHT = 2-5 cells (100X) (0-1/hpf); Platelet Morphology Comment Appears Decreased; Tear Drops SLIGHT = 2-5 cells (100X) (0-1/hpf)
[2019-05-23 05:53] LABS: Anisocytosis MODERATE=16-30 cells (100X) (0-5/hpf)
[2019-05-23] MEDS: Mometasone/Formoterol 200/5 60 PUFF INH SCH (06:10)
[2019-05-23] MEDS ORDERED: Bisacodyl 10 MG SUPP PR PRN (07:41)
[2019-05-23] MEDS: Digoxin 0.125 MG TAB PO SCH (08:08)
[2019-05-23] MEDS: Finasteride 5 MG TAB PO SCH (08:08)
[2019-05-23] MEDS: Potassium Chloride 10 MEQ TAB PO SCH (08:09)
[2019-05-23] MEDS: Atorvastatin Calcium 40 MG TAB PO SCH (08:09)
[2019-05-23] MEDS: Losartan Potassium 50 MG TAB PO SCH (08:09)
[2019-05-23] MEDS: Trospium 20 MG TAB PO SCH (08:10)
[2019-05-23] MEDS: Docusate 100 MG CAP PO PRN (08:10)
[2019-05-23] MEDS: guaiFENesin ER 600 MG TAB PO PRN (08:10)
[2019-05-23] MEDS: Carvedilol 12.5 MG TAB PO SCH (08:10)
[2019-05-23] MEDS: predniSONE 10 MG TAB PO SCH (08:10)
[2019-05-23] MEDS: Hydrochlorothiazide 25 MG TAB PO SCH (08:10)
[2019-05-23] MEDS: Aspirin Chewable 81 MG TAB PO SCH (08:10)
[2019-05-23] MEDS ORDERED: Iopamidol 370 76% 100 ML VIAL ONE (08:54)
[2019-05-23] MEDS ORDERED: Furosemide 40 MG TAB PO SCH (09:00)
[2019-05-23] MEDS ORDERED: Furosemide 40 MG/4 ML VIAL ONE (12:10)
[2019-05-23] MEDS ORDERED: Furosemide 20 MG/2 ML VIAL SLOW IVP SCH (12:30)
[2019-05-23] MEDS ORDERED: Albuterol Sulfate 1.25 MG/3 ML NEB ONE (14:18)
[2019-05-23 14:30] VITALS: BMI 30.7
[2019-05-23] MEDS ORDERED: Albuterol Sulfate 2.5 mg/3 ml Neb NEB SCH (14:45)
[2019-05-23 14:50] LABS: #Basophils 0.2 thou/uL (0.0-0.2); #Lymphocytes 0.2 thou/uL (1.20-3.40); #Monocytes 0.3 thou/uL (0.11-0.59); #Neutrophils 7.3 thou/uL (1.40-6.50); %Basophils 2.6 % (0.0-1.0); %Eosinophils 0.3 % (0.0-10.0); %Monocytes 4.1 % (0.0-10.0); %Neutrophils 90.1 % (42.0-75.0); Mean Corpuscular HGB CONC 30.5 g/dL (32.0-36.0); Mean Corpuscular Hemoglobin 25.8 pg (27.0-31.0); Mean Corpuscular Volume 84.4 fL (78.0-98.0); Mean Platelet Volume 9.6 fL (7.4-10.4); Platelet Count 59 thou/uL (130-400); RBC Distribution Width 23.5 % (11.5-14.5); Red Blood Cell (RBC) Count 3.87 mill/uL (4.70-6.10); White Blood Cell (WBC) Count 8.1 thou/uL (4.8-10.8)
[2019-05-23 14:56] LABS: Anisocytosis MODERATE=16-30 cells (100X) (0-5/hpf); MDiff Complete? YES; Platelet Morphology Comment Appears Decreased
[2019-05-23 15:02] LABS: ALT (SGPT) 192 U/L (8-55); AST (SGOT) 127 U/L (5-34); Albumin 2.8 g/dL (3.4-4.8); Alkaline Phosphatase 273 U/L (40-110); Anion Gap 15 mmol/L (10-20); BUN (Urea Nitrogen) 29 mg/dL (8.4-25.7); Bilirubin, Total 0.5 mg/dL (0.2-1.2); Calc. Creatinine Clearance 95 mL/min (70-130); Calcium 8.5 mg/dL (7.8-10.44); Carbon Dioxide 28 mmol/L (23-31); Chloride 103 mmol/L (98-107); Estimated GFR-MDRD 85; Globulin 3.1 g/dL (2.4-3.5); Glucose 128 mg/dL (83-110); Potassium 4.5 mmol/L (3.5-5.1); Protein, Total 5.9 g/dL (5.8-8.1); Sodium 141 mmol/L (136-145)
[2019-05-23 15:14] VITALS: BP 101/64; TEMP 98
--- NOTE | 2019-05-23 19:46 | RAD ---
PORTABLE CHEST: Date: 05-23-2019 An AP portable film at 1534 is compared with a 05-22-2019 study. FINDINGS: There is perhaps a little more volume loss on the left. A small amount of pleural fluid is noted as b efore. The right lung remains relatively clear. Cardiomegaly is unchanged. There is no congestion of the vessels. IMPRESSION: Further volume loss on the left side. POS: HOME
--- NOTE | 2019-05-23 20:03 | CT ---
CT ANGIO OF THE CHEST: Date: 05-23-2019 Comparison: 05-04-[address] [facility]. FINDINGS: There is excellent opacification of the pulmonary arteries. No filling defects were seen to suggest e mboli. There is no sign of aortic aneurysm or dissection. No pericardial effusion was seen. The left lower lobe has lost more volume in the interval. What we see is a combination of atelectasis and probably infiltrate in the lobe, as well, given the prior appearance. There is resulting elevati on of the left hemidiaphragm due to the volume loss. A small left pleural effusion is present which i s no bigger than before. No new infiltrates are seen in the right lung. Extensive emphysematous gresham es are present throughout. Mediastinal nodes are noted up to 1.5 cm in size as before. Scans into the upper abdomen showed no acute findings in the visible portions of the liver, spleen, a nd pancreas. There is probably a cyst in the left kidney along with some hydronephrosis, but this is shown incompletely. IMPRESSION: 1. No evidence of pulmonary embolism. 2. Further atelectasis of the left lower lobe along with associated infiltrate within it. 3. Small left pleural effusion. 4. COPD. Preliminary report called to Dr. Yeboah at 1516 on 05-23-2019. POS: HOME
== END 2019-05-23 15:40 | disposition short-term general hospital (02) | DRG 948 ==
LOC: BURMED 17:29
PROVIDERS: ADMIT Family Medicine; ATTEND Family Medicine
DX: R53.81 Other malaise (principal); I13.0 Hypertensive heart and chronic kidney disease with heart failure and stage 1 through stage 4 chronic kidney disease, or unspecified chronic kidney disease; C78.00 Secondary malignant neoplasm of unspecified lung; I50.22 Chronic systolic (congestive) heart failure; D63.1 Anemia in chronic kidney disease; N40.0 Benign prostatic hyperplasia without lower urinary tract symptoms; K59.00 Constipation, unspecified; I25.10 Atherosclerotic heart disease of native coronary artery without angina pectoris; J44.9 Chronic obstructive pulmonary disease, unspecified; C67.9 Malignant neoplasm of bladder, unspecified; N18.9 Chronic kidney disease, unspecified; Z95.810 Presence of automatic (implantable) cardiac defibrillator; Z95.1 Presence of aortocoronary bypass graft; Z87.891 Personal history of nicotine dependence; Z88.8 Allergy status to other drugs, medicaments and biological substances
CPT/HCPCS: 36415; 71045; 71046; 71275; 80053; 80162; 81001; 83880; 84484; 85025; 85379; 87086; 94640; 94664; J1940; J7050; J7512; J7620; J7626; Q9967

== ENCOUNTER 2019-05-23 14:55 | Emergency (ER) | payer MEDICARE ==
[2019-05-23] MEDS ORDERED: Sodium Chloride 0.9% 100 ML ONE (15:35)
[2019-05-23] MEDS ORDERED: Cefepime 1 GM VIAL ONE (15:35)
[2019-05-23] MEDS ORDERED: Vancomycin 1.5 GRAM/300 ML BAG 1.5 GM/300 ML BAG ONE (15:54)
== END 2019-05-23 16:00 | disposition short-term general hospital (02) ==
LOC: BURERS 14:55
DX: J96.01 Acute respiratory failure with hypoxia (principal); J18.9 Pneumonia, unspecified organism; I10 Essential (primary) hypertension; I25.10 Atherosclerotic heart disease of native coronary artery without angina pectoris; K21.9 Gastro-esophageal reflux disease without esophagitis; Z87.891 Personal history of nicotine dependence
CPT/HCPCS: 87040; 94660; 96374; 96375; J0692; J3370; J3490